=== PATIENT | male | born 1950 | race Caucasian/White ===

== ENCOUNTER 2023-03-26 06:15 | Day surgery (SDC) | payer MEDICARE, BC, SELFPAY ==
[2023-03-26] MEDS: BUPIVACAINE 0.5% 30 ML INJECTION (06:40)
[2023-03-26 06:45] VITALS: BP 141/91; PULSE 43; RESP 16; TEMP 36.8; O2SAT 95
[2023-03-26 06:46] VITALS: BMI 36.6
--- NOTE | 2023-03-26 07:15 | SUR.PREOP ---
SAME DAY SURGERY LOCAL INJECTION SITE VERIFICATION WAS PERFORMED BY SURGEON/PA AND PATIENT PRIOR TO LOCAL ANESTHETIC BEING INJECTED TO OPERATIVE SITE.
[2023-03-26 07:26] VITALS: BP 172/89; PULSE 46; RESP 16; O2SAT 95
[2023-03-26 07:31] VITALS: BP 166/84; PULSE 46; RESP 16; O2SAT 95
[2023-03-26 07:36] VITALS: BP 163/84; PULSE 45; RESP 16; O2SAT 95
[2023-03-26 07:42] VITALS: BP 161/83; PULSE 45; RESP 16; O2SAT 95
--- NOTE | 2023-03-26 07:43 | PM.ORPRC ---
Procedure Note Date of procedure: 03/26/23 Procedure: PREOPERATIVE DIAGNOSIS: 1. Left carpal tunnel syndrome POSTOPERATIVE DIAGNOSIS: 1. Left carpal tunnel syndrome PROCEDURE: 1. Left open carpal tunnel release SURGEON: Ortega Perez MD. GRAVITY MANAGER: ARJUN Curry ANESTHESIA: Local anesthetic (50:50 mixture of 1% lidocaine with epi and 0.5% marcaine plain) - 10ml total IMPLANTS: None EBL: 2 mL TOURNIQUET: None COMPLICATIONS: None evident INDICATIONS: The patient is a pleasant 72-year-old male who has experienced left hand numbess/tingling affecting the radial 3.5 digits for multiple months. It has progressively gotten worse. Nonoperative management has been tried and failed, and therefore surgery was recommended. DESCRIPTION OF PROCEDURE: Following a thorough discussion of risks, benefits, and alternatives consent was obtained and the operative extremity was marked. The patient was brought to the operating room and placed supine on the operating table. Local anesthesia induction was undertaken in preop holding. No antibiotics were administered as this was planned to be a local case only. Proper time-out was performed identifying proper patient, site, and procedure. The operative extremity was prepped and draped in the appropriate sterile fashion using ChloraPrep. An incision was made in line with the radial border of the ring finger beginning 1 cm distal to the distal wrist crease and progressing for another 2.5cm distal. Caution was taken to stay proximal to Wallace's cardinal line. Sharp incision through the skin, subcutaneous tissue, and palmar fascia was performed. The thenar musculature was bluntly elevated off the transverse carpal ligament. The ligament was directly visualized, and divided sharply with a 15 blade. This was released from its most proximal to the most distal extent. Metzenbaum scissor was also utilized to release the fascia extension proximally. We confirmed complete release of the transverse carpal ligament. Closure was performed with 4-O nylon in interrupted fashion. Soft dressings were applied, and the patient was transferred to the recovery room in stable condition. PLAN: 1. Encourage elevation of the operative extremity. 2. Range of motion of the fingers and hand/wrist as tolerated. 3. Ibuprofen/acetaminophen and/or Percocet as needed for pain control. 4. Follow up with PA visit or nurse visit in 12-16 days for wound check and suture removal.
[2023-03-26 08:00] VITALS: BP 151/87; PULSE 46; RESP 16; TEMP 36.5; O2SAT 98
== END 2023-03-26 08:12 | disposition home or self-care (01) ==
PROVIDERS: PCP Family Medicine; Visit Provider Orthopaedic Surgery Sports Medicine
PROC: (CPT 64721; principal; 2023-03-26 07:30)
DX: G56.02 Carpal tunnel syndrome, left upper limb (principal)
CPT/HCPCS: 64721; J0665

== ENCOUNTER 2024-12-16 07:00 | Day surgery (SDC) | payer MEDICARE, BC, SELFPAY ==
[2024-12-16] VITALS (22 sets, daily range): BP systolic 130–172; BP diastolic 77–97; PULSE 48–70; RESP 12–18; TEMP 35.8–37; O2SAT 90–97; BMI 39.3
[2024-12-16] MEDS: ACETAMINOPHEN 500 MG TABLET 1000 MG PO ×3 (07:15→20:22)
[2024-12-16] MEDS: CELECOXIB 200 MG CAPSULE PO (07:15)
[2024-12-16] MEDS: OXYCODONE (CR) 10 MG TAB.ER.12H PO (07:15)
[2024-12-16] MEDS: SODIUM CHLORIDE 0.9 % (FLUSH) 10 ML SYRINGE IVF (07:45)
[2024-12-16] MEDS: LACTATED RINGERS 1000 ML 1,000 ML 100 ML IV ×2 (07:45→10:48)
[2024-12-16] MEDS: fentaNYL 100 MCG/2 ML inj IVP (08:11)
[2024-12-16] MEDS: MIDAZOLAM HCL 1 MG/ML inj IVP (08:11)
--- NOTE | 2024-12-16 08:12 | SUR.PREOP ---
TIME?OUT:?0810 PT/RN/MDA?VERIFICATION?OF?SURGICAL?SITE,?PROCEDURE,?AND?CONSENT OBTAINED?PRIOR?TO?INVASIVE?PROCEDURE.
[2024-12-16] MEDS: CEFAZOLIN 1 GM inj IVP (08:56)
[2024-12-16] MEDS: TRANEXAMIC ACID 100 MG/ML INJ 1000 MG IV (08:56)
--- NOTE | 2024-12-16 09:29 | SUR.OPER ---
per supplier quality engineer contacts needed to come out for surgery. Patient requested glasses to be brought to or with him so he has them when they wake up. glasses given to pacu nurse to put on patient when he wakes up.
--- NOTE | 2024-12-16 10:18 | CRLHL7_ITS ---
For Patients: As a result of the Cures Act, medical imaging exams and procedure reports are released immediately into your electronic medical record. You may view this report before your referring provider. If you have questions, please contact your health care provider. INDICATION: Left knee arthroplasty. COMPARISON: 09/17/2024 TECHNIQUE: Views: 2 FINDINGS: Interval total left knee arthroplasty. Postop periarticular soft tissue gas. IMPRESSION: Interval left knee arthroplasty. Dictated by Darien Humphrey MD @ 12/17/2024 11:12:20 AM (Electronically Signed)
--- NOTE | 2024-12-16 10:23 | P.ORPRC_ITS ---
Procedure Note Date of procedure: 12/16/24 Procedure: PREOPERATIVE DIAGNOSIS: Left knee osteoarthritis POSTOPERATIVE DIAGNOSIS: Left knee osteoarthritis NAME OF OPERATION: Left total knee arthroplasty SURGEON: Kiko Moyer MD DIRECTOR PROPERTY: ANMOL Curry Elizabeth Oss, MS ANESTHESIA: Spinal ESTIMATED BLOOD LOSS: 0 mL COMPLICATIONS: None SPECIMENS: None DRAINS: None PREOPERATIVE ANTIBIOTICS: Ancef 3 grams, antibiotic impregnated cement IMPLANTS: 1. J&J Attune # 8 posterior stabilized femur 2. # 7 revision CRS fixed-bearing tibia, 14 mm x 50 mm cemented stem 3. # 8 posterior stabilized, 5 mm fixed-bearing polyethylene 4. 41 patella INDICATIONS: The patient is a 74-year-old with a longstanding history of severe, unrelenting left knee pain secondary to end-stage (grade IV) left knee osteoarthritis. Despite appropriate nonoperative management, including activity modification, anti-inflammatories, [id number] pain medication, bracing, physical therapy, and injections they continue to have pain and disability. Operative intervention was offered. The risks, benefits and expected outcomes were discussed in detail. These included but were not limited to: Infection, bleeding, injury to blood vessel or nerve, venous thromboembolism. All questions were answered to their satisfaction. Use of an journeyman operator assistant was necessary throughout the case for patient positioning and safety, soft tissue retraction, and closure. A modifier 22 should be added to this case. With the weight of 128 kg and a BMI of 39 a stemmed tibial component was used to reduce the risk of aseptic loosening. This added time and cost to complete the case. PROCEDURE: Spinal anesthesia was administered. The patient was placed supine on the operating table. The journeyman operator assistant made sure the patient was positioned appropriately. The lower extremity was prepped and draped in the usual sterile fashion. The limb was exsanguinated with the Korey bandage. The pneumatic tourniquet was inflated to 300 mmHg. A standard anterior incision was made with the knee in flexion. Subcutaneous dissection was sharply taken through fascial layer #1. Full-thickness medial and lateral flaps were elevated. The journeyman operator assistant retracted the soft tissues and protected them throughout the case. A standard subvastus approach was made. The patella was subluxed. The infrapatellar fat pad was preserved. The menisci and cruciate ligaments were sharply d?brided. Marginal osteophytes were d?brided with the rongeur. The drill was used to penetrate the femoral canal. The canal was aspirated and irrigated with pulse lavage. The intramedullary femoral guide was placed for a 5-degree valgus cut, removing 10 mm off the distal femur. The saw was used to make the cut. Whitesides line and the trans epicondylar axis were marked. The femoral sizing guide was pinned onto the distal femur. Three degrees of external rotation nicely parallels the transepicondylar axis. Pins were placed for posterior referencing. The four-in-one cutting guide was pinned onto the distal femur. The anterior, posterior, and chamfer cuts were made. The journeyman operator assistant protected the collateral ligaments. The box cutting guide was pinned. The box cuts were made. The boxed trial was placed and was an excellent fit. Drill holes for the lugs were made. Attention was then turned to the proximal tibia. The extramedullary tibial guide was placed for a neutral varus/valgus cut with 5 degrees of posterior slope, removing 2 mm based off the medial tibial surface. The journeyman operator assistant protected the collateral ligaments and the neurovascular bundle. The saw was used to make the cut. Trial components were placed. The knee was nicely balanced in both flexion and extension. The trial components were removed. The tray was placed in appropriate rotation, parallel to our tibial cutting pins. It was pinned by the journeyman operator assistant and the drill x2 was used. The stemmed tibial trial was placed. The punch was used. The tray was removed. The punch was used again. Drill holes were made in the sclerotic medial tibial plateau. A bone plug was placed in the femoral canal. Attention was then turned to the patella. [place] patellar thickness was 22 mm. The lobster claw resection guide was used with the 7.5 mm gilbert. The saw was used to make the cut. Drill holes were made by the journeyman operator assistant. The trial was placed. Thickness is now 26 mm. Therefore, we took another mm of bone from the patella with a freehand cut, reach drilled the lugs and placed the trial. Now the thickness is 25 mm. Cancellous surfaces were irrigated with pulse lavage and thoroughly dried by the journeyman operator assistant. We cemented the tibial component, then the femoral component. We impacted the 5 mm polyethylene onto the tibial tray. The knee was brought into full extension. We then cemented the patellar component. Excessive cement was removed. The cement was allowed to harden. The knee was taken through a range of motion and was found to be nicely balanced in both flexion and extension. The patella tracks centrally. The journeyman operator assistant did a three minute dilute Betadine solution soak. The journeyman operator assistant irrigated the wound with 3 liters of normal saline via pulse lavage. The journeyman operator assistant reapproximated the extensor mechanism with #1 Vicryl in an interrupted [id number] fashion. The journeyman operator assistant then ran the extensor mechanism with a #1 PDO Stratafix. The journeyman operator assistant closed the subcutaneous tissues with a 3-0 Stratafix and the skin with a running 3-0 Stratafix in a subcuticular fashion. Glue was used to seal the skin. The journeyman operator assistant placed a dry dressing. Sponge and needle counts were correct x2. The patient tolerated the procedure well. There were no apparent complications. They were carefully transferred to the hospital bed and taken to the postanesthesia care unit in satisfactory condition. PLAN: The patient will be mobilized with physical therapy. Aspirin will be used for DVT prophylaxis. They will be discharged to home once medically appropriate.
--- NOTE | 2024-12-16 11:23 | P.ANES_ITS ---
Anesthesia Charges Start Date/Time Anesthesia Start Date: 12/16/24 Anesthesia Start Time: 08:30 Stop Date/Time Anesthesia Stop Date: 12/16/24 Anesthesia Stop Time: 11:01 Summary Extremes of Age - Over 70 or under 1: LEAD PRESSMAN Coding CPT Codes CPT Codes: ANESTH KNEE ARTHROPLASTY - 93019 ([id number]) P3 - PATIENT W/SEVERE SYS DISEASE, QZ - LEAD PRESSMAN SVC W/O ENTRY LEVEL ASSISTANT MANAGER BY Additional Codes: Summary - Extremes of Age - Over 70 or under 1: LEAD PRESSMAN ([id number])
--- NOTE | 2024-12-16 11:23 | W.ANESCHARGE ---
Anesthesia Charges Start Date/Time Anesthesia Start Date: 12/16/24 Anesthesia Start Time: 08:30 Stop Date/Time Anesthesia Stop Date: 12/16/24 Anesthesia Stop Time: 11:01 Summary Extremes of Age - Over 70 or under 1: OPTICAL ELEMENT COATER Coding CPT Codes CPT Codes: ANESTH KNEE ARTHROPLASTY - 21304 ([id number]) P3 - PATIENT W/SEVERE SYS DISEASE, QZ - OPTICAL ELEMENT COATER SVC W/O HOTEL ASSOCIATE BY Additional Codes: Summary - Extremes of Age - Over 70 or under 1: OPTICAL ELEMENT COATER ([id number])
--- NOTE | 2024-12-16 11:26 | P.NB_ITS ---
Nerve Block Nerve Block Time Seen by Provider: 08:15 Date Seen: 01/08/25 Type of block requested by surgeon for post-operative analgesia: geniculars Side: left Time out performed: Yes Verification of patient name: Yes Verification of date of : Yes Site marking: site marked Name of person performing procedure: Jame Continuous monitoring Was continuous monitoring of O2 sat, B/P, monitor car operator, recorded every 15 minutes?: Yes Procedure Checklist: sterile prep, needles and gloves Ultrasound guided. Images saved: Yes Medications given in 5ml increments after negative aspiration: Marcaine %: 0.25 mL: 9 Needle gauge: 25 Patient tolerated procedure well: Yes Block Charges Block Charge (with Pro Fee): Genicular Nerve Block
--- NOTE | 2024-12-16 11:26 | W.PM.NB ---
Nerve Block Nerve Block Time Seen by Provider: 08:15 Date Seen: 12/16/24 Type of block requested by surgeon for post-operative analgesia: adductor canal Side: left Time out performed: Yes Verification of patient name: Yes Verification of date of : Yes Site marking: site marked Name of person performing procedure: Jame Continuous monitoring Was continuous monitoring of O2 sat, B/P, ekg monitor tech, recorded every 15 minutes?: Yes Procedure Checklist: sterile prep, needles and gloves Ultrasound guided. Images saved: Yes Medications given in 5ml increments after negative aspiration: Marcaine %: 0.25 mL: 15 Needle gauge: 20 Precedex (mcg): 25 Patient tolerated procedure well: Yes Block Charges Block Charge (with Pro Fee): Femoral Nerve Use of Ultrasound Machine for Block: Yes- US Guidance/pain block
--- NOTE | 2024-12-16 11:36 | SUR.PHASEI ---
patient met discharge criteria per anesthesia
[2024-12-16] MEDS: OXYCODONE 5 MG TABLET PO ×4 (15:12→22:29)
--- NOTE | 2024-12-16 15:42 | P.IMCN_ITS ---
Date of Consult Patient: Luisito Patient Consult date: 12/16/24 Requesting Physician: Orthopedics Primary Care Provider: Tima Sinha MD Consult Narrative Reason for consult: Medical management of comorbidities Narrative: Saravanan Tan is a 74 year old male who presented to the hospital today for an elective L TKA. There were no surgical or anesthetic complications noted during procedure. Patient's H&P reviewed, PCP is Dr. Sinha at the [facility]. Past medical history significant for: lymphoma (on Rituximab every other month), chronic pain (recently weaned off of Suboxone by pain clinic), anxiety, pre-DM2, essential HTN. 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 Review of Systems Status of ROS: Reports: 10 or more systems reviewed and unremarkable except as noted in History and below [facility] Medical History (Updated 12/16/24 @ 17:18 by Jasmine Orlando MD) Chronic pain ?G89.29 - Other chronic pain (ICD-10) Hyperlipidemia ?E78.5 - Hyperlipidemia, unspecified (ICD-10) Anxiety ?F41.9 - Anxiety disorder, unspecified (ICD-10) Prostate cancer ?C61 - Malignant neoplasm of prostate (ICD-10) Depression ?F32.A - Depression, unspecified (ICD-10) Arthritis ?M19.90 - Unspecified osteoarthritis, unspecified site (ICD-10) GERD (gastroesophageal reflux disease) ?K21.9 - Gastro-esophageal reflux disease without esophagitis (ICD-10) Cardiac arrhythmia ?I49.9 - Cardiac arrhythmia, unspecified (ICD-10) Elevated cholesterol ?E78.00 - Pure hypercholesterolemia, unspecified (ICD-10) Hypertension ?I10 - Essential (primary) hypertension (ICD-10) Sleep apnea ?G47.30 - Sleep apnea, unspecified (ICD-10) Prolapsed internal hemorrhoids (03/02/11) ?K64.8 - Other hemorrhoids (ICD-10) 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.3 - Anal fistula (ICD-10) Internal hemorrhoids (03/02/11) ?K64.8 - Other hemorrhoids (ICD-10) Surgical History (Updated 12/16/24 @ 17:19 by Jasmine Orlando MD) History of arthroplasty of left knee (12/16/24) ?Z96.652 - Presence of left artificial knee joint (ICD-10) History of carpal tunnel surgery of left wrist (03/26/23) ?Z98.890 - Other specified postprocedural states (ICD-10) H/O prostatectomy ?Z90.79 - Acquired absence of other genital organ(s) (ICD-10) Hx of tonsillectomy ?Z90.89 - Acquired absence of other organs (ICD-10) S/P arthroscopy of right shoulder (10/13/09) ?Z98.890 - Other specified postprocedural states (ICD-10) S/P arthroscopy of right shoulder (09/18/08) ?Z98.890 - Other specified postprocedural states (ICD-10) S/P right knee arthroscopy (01/13/09) ?Z98.890 - Other specified postprocedural states (ICD-10) S/P left knee arthroscopy (12/25/11) ?Z98.890 - Other specified postprocedural states (ICD-10) 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) Father High blood pressure Mother High blood pressure Social History (Reviewed 04/10/23 @ 13:00 by Adri Pierson ~ [facility]) Narrative: former smoker What is your current living situation?: I presently have a place to live Problems where you live: no known problems In the past 12 months, utilities in danger of being shut off: no In past 12 months, lack of transportation kept you from medical appts, meetings, work, or getting things needed for daily living: no In the past 12 mos, have been you worried that your food would run out before you had money to buy more?: never true In the past 12 mos, the food you bought just didn't last and you didn't have money to buy more?: never true Highest level of school completed/degree received: some college, no degree Smoking Status: Never smoker Do you use any of these nicotine containing products: None Second hand tobacco smoke exposure: No How often do you have a drink containing alcohol: never How often do you have six or more drinks on one occasion: Never AUDIT-C Alcohol total score: 0 Non-prescribed substance use: denies use Caffeine: Yes How often does anyone, including family, friends and others, physically hurt you : never How often does anyone, including family, friends and others, insult or talk down to you: never How often does anyone, including family, friends and others, threaten you with harm: never How often does anyone, including family, friends and others, scream or curse at you: never service: Yes Meds Home Medications and Allergies Home Medications ?Medication ?Instructions ?Recorded ?Confirmed ?Type omeprazole 20 mg capsule,delayed 20 mg PO DAILY 03/14/23 12/16/24 History release atorvastatin 40 mg tablet 40 mg PO HS 11/25/24 12/16/24 History acyclovir 400 mg tablet 400 mg PO BID 12/02/24 12/16/24 History amoxicillin 500 mg capsule 2,000 mg PO ONCE PRN 12/02/24 12/16/24 History cholecalciferol (vitamin D3) 25 25 mcg PO DAILY 12/02/24 12/16/24 History mcg (1,000 unit) capsule duloxetine 60 mg capsule,delayed 60 mg PO DAILY 12/02/24 12/16/24 History release ibuprofen 600 mg tablet 600 mg PO QID PRN 12/02/24 12/16/24 History buprenorphine 8 mg-naloxone 2 mg 1 film sublingual DAILY 12/16/24 12/16/24 His tory sublingual film celecoxib 100 mg capsule 100 mg PO BID 12/16/24 12/16/24 History hydrocodone 7.5 mg-acetaminophen 1 tab PO QID PRN 12/16/24 12/16/24 History 325 mg tablet triamcinolone acetonide 0.1 % 1 applic topical TID PRN 12/16/24 12/16/24 History topical cream Allergies Allergy/AdvReac Type Severity Reaction Status Date / Time mirtazapine AdvReac Verified 12/16/24 07:08 Exam Narrative: Exam Narrative: GEN: Alert and oriented, sitting comfortably in bedside chair HEENT: EOMIs bilaterally, no scleral icterus CV: RRR, No concerning murmurs R: LCTA bilaterally without concerning wheezing Skin: No concerning skin lesions or rashes on exposed skin Neuro: Nonfocal Psych: Appropriate Const: Vital Signs, click to edit/add: Vital Signs - 24 hr 12/16/24 07:30 12/16/24 08:12 12/16/24 08:15 Temperature 98.2 F Pulse Rate 57 L 52 L 54 L Respiratory Rate 16 16 16 Blood Pressure 141/82 H 141/85 H 142/77 H Pulse Oximetry 97 97 95 Oxygen Delivery Me thod Room Air Nasal Cannula Nasal Cannula Oxygen Flow Rate 2 2 12/16/24 10:05 12/16/24 10:57 12/16/24 11:00 Temperature 97.6 F 97.6 F 97.6 F Pulse Rate 51 L 52 L 51 L Respiratory Rate 14 12 15 Blood Pressure 142/79 H 136/78 130/89 Pulse Oximetry 92 93 90 Oxygen Delivery Me thod Room Air Room Air Room Air Oxygen Flow Rate 12/16/24 11:05 12/16/24 11:10 12/16/24 11:15 Temperature 97.6 F 97.6 F 97.6 F Pulse Rate 51 L 51 L 50 L Respiratory Rate 14 13 14 Blood Pressure 142/79 H 142/84 H 145/79 H Pulse Oximetry 91 94 95 Oxygen Delivery Me thod Room Air Room Air Room Air Oxygen Flow Rate 12/16/24 11:20 12/16/24 11:25 12/16/24 11:38 Temperature 97.6 F 97 F L 96.6 F L Pulse Rate 49 L 48 L 48 L Respiratory Rate 14 12 12 Blood Pressure 150/89 H 151/84 H 143/96 H Pulse Oximetry 93 93 96 Oxygen Delivery Me thod Room Air Room Air Room Air Oxygen Flow Rate 12/16/24 11:38 12/16/24 11:53 12/16/24 12:08 Temperature 96.5 F L 96.7 F L 97.0 F L Pulse Rate 49 L 52 L 50 L Respiratory Rate 12 12 14 Blood Pressure 143/80 H 159/93 H 170/97 H Pulse Oximetry 97 97 96 Oxygen Delivery Me thod Room Air Room Air Room Air Oxygen Flow Rate 12/16/24 12:23 12/16/24 12:53 12/16/24 13:08 Temperature 96.9 F L 96.9 F L 96.8 F L Pulse Rate 50 L 52 L 52 L Respiratory Rate 14 14 15 Blood Pressure 163/93 H 172/93 H 164/96 H Pulse Oximetry 97 97 97 Oxygen Delivery Me thod Room Air Room Air Room Air Oxygen Flow Rate 12/16/24 14:17 Temperature 97.0 F L Pulse Rate 52 L Respiratory Rate 12 Blood Pressure 164/96 H Pulse Oximetry 97 Oxygen Delivery Me thod Room Air Oxygen Flow Rate Assessment and Plan Assessment and plan (1) Status post left knee replacement: Problem comment: - Dr. Moyer, 12/16/24 Status: Acute (2) Hypertension: Problem comment: - continue home meds Status: Acute (3) Chronic pain: Problem comment: - follows with pain clinic, recently tapered off of his Suboxone Status: Acute Plan - pain management and prophylaxis per orthopedic surgery team - continue home medications for comorbidities - anticipate routine postoperative course
[2024-12-16] MEDS: CEFAZOLIN 3 GM in 0.9 % SODIUM CHLORIDE Mini-bag 100 ML IVPB ×2 (16:04→22:28)
--- NOTE | 2024-12-16 19:29 | PC.NURSE ---
Nursing Care Hours: [id number] Pt this shift calm and cooperative, alert and oriented. Pain treated with PO pain meds. Pt attempting to do exercise in chair but limited by pain. However says pain in zero at rest. VSS, tolerating regular diet. Up in chair. Saline locked IV.
[2024-12-16] MEDS: SENNOSIDES 1 TAB TABLET 2 TAB PO (20:22)
[2024-12-16] MEDS: ASPIRIN 81 MG TABLET EC PO (20:22)
[2024-12-16] MEDS: ACYCLOVIR 200 MG CAPSULE 400 MG PO (20:23)
[2024-12-16] MEDS: ATORVASTATIN CALCIUM 40 MG TABLET PO (20:23)
[2024-12-16] MEDS: HYDROmorphone 0.5 mg/0.5 ml inj IVP (21:53)
[2024-12-16] MEDS: MELATONIN 3 MG TABLET PO (23:52)
[2024-12-17] MEDS: ACETAMINOPHEN 500 MG TABLET 1000 MG PO ×2 (01:22→07:21)
[2024-12-17] MEDS: OXYCODONE 5 MG TABLET PO ×3 (01:27→09:58)
[2024-12-17 02:32] VITALS: BP 132/84; PULSE 65; RESP 16; TEMP 36.6; O2SAT 94
--- NOTE | 2024-12-17 04:50 | PC.NURSE ---
Addendum entered by Kelly Love RN 12/17/24 06:41: Pt walked lipscomb this shift with keno writer/runner utilizing JANICE SIMON WGarrett Original Note: End of shift report [id number]: VS WNL. Afebrile. Rates pain from a 5-6 pain meds offered and given with relief. Pain assessment scale handout given to pt and educated on.?Intermittent ice applied to left knee. Left knee dressing is C/D/I. CMS to LLE intact. IV is SL in R hand. Ambulates JANICE Lee, W. Call light within reach.?
[2024-12-17] MEDS: OMEPRAZOLE 20 MG CAPSULE DR PO (06:23)
[2024-12-17 07:00] VITALS: BP 144/85; PULSE 60; RESP 12; TEMP 36.4; O2SAT 97
[2024-12-17 07:04] LABS: Basophils Percent Auto 0.2 % (0.0-3.0); Hematocrit 41.4 % (37.0-53.0); Hemoglobin* 13.8 gm/dL (13.5-17.5); Immature Granulocytes Pct Auto 0.3 %; Mean Corpuscular HGB Conc 33 gm/dL (32-36); Mean Corpuscular Hemoglobin 28 pg (26-34); Mean Corpuscular Volume 85 fL (80-100); Monocytes Percent Auto 12.8 % (0.0-11.0); Neutrophils Percent Auto 77.7 % (42.0-72.0); Platelet Count* 171 K/uL (140-440); RDW Coefficient of Variation % 14.7 % (11.5-15.5); Red Blood Count 4.86 m/uL (4.30-5.90); White Blood Count* 13.27 K/uL (4.50-11.00)
[2024-12-17 07:26] LABS: Potassium* 3.8 mmol/L (3.6-5.1); Sodium* 136 mmol/L (135-149)
[2024-12-17 07:27] LABS: INR 0.96 (0.91-1.10); Prothrombin Time 13.6 Seconds
[2024-12-17 07:29] LABS: Blood Urea Nitrogen* 18 mg/dL (7-30); Creatinine* 0.9 mg/dL (0.5-1.5); Est. Creatinine Clearance* 70.07; Estimated Glomerular Filt Rate 90 ml/min
[2024-12-17 07:35] LABS: Slide Review Reflex No
--- NOTE | 2024-12-17 07:59 | PC.SOCIAL ---
Discharge planning: Patient states that he is doing well. Patient explains that this is his second knee replacement so knows how it goes. Patient reports that he has his for support and no concerns for when he goes home. Patient states no needs from SW.
--- NOTE | 2024-12-17 08:09 | PM.ORPN ---
Subjective Subjective Time Seen by Provider: 07:30 Date Seen: 12/17/24 Principal diagnosis: Status post left knee replacement Interval history: Duran is comfortable in his recliner this morning. He did not get much sleep last night. He is looking forward to discharging to home. Ortho Exam Narrative Exam Narrative: Alert and oriented x3. Patient is in no acute distress. Converses without labored breathing. Hearing is grossly intact. Ambulates with a walker. Examination of the left lower extremity shows mild soft tissue edema about the left knee. Mild hematoma. Dressing is intact. No warmth or erythema or sign of infection. Calves are soft and nontender. CMS intact left lower extremity. Easily able to plantar flex and dorsiflex the left ankle Const Vital Signs, click to edit/add: Vital Signs - 24 hr 12/16/24 08:12 12/16/24 08:15 12/16/24 10:05 Temperature 97.6 F Pulse Rate 52 L 54 L 51 L Pulse Rate [Right Pulse Oximeter] Respiratory Rate 16 16 14 Blood Pressure 141/85 H 142/77 H 142/79 H Blood Pressure [Left Arm] Blood Pressure [Right Arm] Pulse Oximetry 97 95 92 Oxygen Delivery Method Nasal Cannula Nasal Cannula Room Air Oxygen Flow Rate 2 2 12/16/24 10:57 12/16/24 11:00 12/16/24 11:05 Temperature 97.6 F 97.6 F 97.6 F Pulse Rate 52 L 51 L 51 L Pulse Rate [Right Pulse Oximeter] Respiratory Rate 12 15 14 Blood Pressure 136/78 130/89 142/79 H Blood Pressure [Left Arm] Blood Pressure [Right Arm] Pulse Oximetry 93 90 91 Oxygen Delivery Method Room Air Room Air Room Air Oxygen Flow Rate 12/16/24 11:10 12/16/24 11:15 12/16/24 11:20 Temperature 97.6 F 97.6 F 97.6 F Pulse Rate 51 L 50 L 49 L Pulse Rate [Right Pulse Oximeter] Respiratory Rate 13 14 14 Blood Pressure 142/84 H 145/79 H 150/89 H Blood Pressure [Left Arm] Blood Pressure [Right Arm] Pulse Oximetry 94 95 93 Oxygen Delivery Method Room Air Room Air Room Air Oxygen Flow Rate 12/16/24 11:25 12/16/24 11:38 12/16/24 11:38 Temperature 97 F L 96.6 F L 96.5 F L Pulse Rate 48 L 48 L 49 L Pulse Rate [Right Pulse Oximeter] Respiratory Rate 12 12 12 Blood Pressure 151/84 H 143/96 H 143/80 H Blood Pressure [Left Arm] Blood Pressure [Right Arm] Pulse Oximetry 93 96 97 Oxygen Delivery Method Room Air Room Air Room Air Oxygen Flow Rate 12/16/24 11:53 12/16/24 12:08 12/16/24 12:23 Temperature 96.7 F L 97.0 F L 96.9 F L Pulse Rate 52 L 50 L 50 L Pulse Rate [Right Pulse Oximeter] Respiratory Rate 12 14 14 Blood Pressure 159/93 H 170/97 H 163/93 H Blood Pressure [Left Arm] Blood Pressure [Right Arm] Pulse Oximetry 97 96 97 Oxygen Delivery Method Room Air Room Air Room Air Oxygen Flow Rate 12/16/24 12:53 12/16/24 13:08 12/16/24 14:17 Temperature 96.9 F L 96.8 F L 97.0 F L Pulse Rate 52 L 52 L 52 L Pulse Rate [Right Pulse Oximeter] Respiratory Rate 14 15 12 Blood Pressure 172/93 H 164/96 H 164/96 H Blood Pressure [Left Arm] Blood Pressure [Right Arm] Pulse Oximetry 97 97 97 Oxygen Delivery Method Room Air Room Air Room Air Oxygen Flow Rate 12/16/24 15:00 12/16/24 15:00 12/16/24 18:00 Temperature 98.5 F Pulse Rate 62 Pulse Rate [Right Pulse Oximeter] Respiratory Rate 16 16 16 Blood Pressure 160/90 H Blood Pressure [Left Arm] Blood Pressure [Right Arm] Pulse Oximetry 95 94 Oxygen Delivery Method Room Air Room Air Oxygen Flow Rate 12/16/24 20:15 12/16/24 23:00 12/16/24 23:00 Temperature 98 F 98.6 F Pulse Rate Pulse Rate [Right Pulse Oximeter] 70 68 68 Respiratory Rate 18 16 16 Blood Pressure Blood Pressure [Left Arm] 150/92 H Blood Pressure [Right Arm] 138/88 Pulse Oximetry 96 94 Oxygen Delivery Method Room Air Room Air Oxygen Flow Rate 12/16/24 23:00 12/16/24 23:00 12/17/24 02:32 Temperature 98 F Pulse Rate Pulse Rate [Right Pulse Oximeter] 65 Respiratory Rate 16 16 16 Blood Pressure Blood Pressure [Left Arm] Blood Pressure [Right Arm] 132/84 Pulse Oximetry 94 94 94 Oxygen Delivery Method Room Air Room Air Room Air Oxygen Flow Rate Assessment and Plan Assessment and plan (1) Status post left knee replacement: Problem details: - Dr. Moyer, 12/16/24 Status: Acute Assessment and Plan: Plan for discharge is today to home if they meet discharge criteria. DVT prophylaxis includes aspirin 81 mg twice daily x1 month, Compression stockings as needed for swelling. Frequent ambulation, every hour throughout the day. Remove dressing in 1 week. Observe wound and phone Orthopedics with any questions or concerns Return to clinic in 1 week for a wound check Return to clinic in 6 weeks with surgeon Minimize narcotic use. Wean off and discontinue soon as possible. Activities as tolerated. No strenuous activity. Outpatient physical therapy as scheduled. Ice and elevate the operative extremity. No restriction on ice. Oxycodone will be used for postoperative pain. He will stop is hydrocodone. He would like to stop his Suboxone now that he has weaned off of it. We discussed that that sounds like a great plan. He will speak with Darien Stevenson regarding this. Darien wanted to see him when his pain level is at the point where he is taking 2.5 tablets of oxycodone per day or less. We discussed that his pain will likely increase once the block has worn off. He may experience more intense pain for around 5 days before pain becomes more tolerable. Swelling and bruising is expected to increase over the next week.
[2024-12-17] MEDS: ACYCLOVIR 200 MG CAPSULE 400 MG PO (08:31)
[2024-12-17] MEDS: ASPIRIN 81 MG TABLET EC PO (08:31)
[2024-12-17] MEDS: SENNOSIDES 1 TAB TABLET 2 TAB PO (08:31)
[2024-12-17] MEDS: DULOXETINE 30 MG CAPSULE DR 60 MG PO (08:32)
== END 2024-12-17 10:15 | disposition home or self-care (01) ==
LOC: OR 07:01 → MEDSURG 07:04
PROVIDERS: PCP Family Medicine; Visit Provider Orthopaedic Surgery
PROC: (CPT 27447; principal; 2024-12-16 08:45)
DX: M17.12 Unilateral primary osteoarthritis, left knee (principal); G89.18 Other acute postprocedural pain; Z79.82 Long term (current) use of aspirin; R73.03 Prediabetes; E66.812 Obesity, class 2; I10 Essential (primary) hypertension; G89.29 Other chronic pain; Z68.39 Body mass index [BMI] 39.0-39.9, adult; Z96.652 Presence of left artificial knee joint; I49.9 Cardiac arrhythmia, unspecified
CPT/HCPCS: 27447; 01402; 36415; 64447; 64454; 73560; 76942; 82565; 84132; 84295; 84520; 85025; 85610; 97110; 97116; 97162; 97165; 97530; 97535; 99100; A9270; C1776; J0665; J0690; J1100; J1171; J2250; J2704; J3010; J7120

== ENCOUNTER 2025-02-23 20:10 | Outpatient (CLI) | payer MEDICARE, BC, SELFPAY ==
--- OUTSIDE RECORDS SUMMARY | 2021-10-20 11:20 | XMS_ITS | Continuity of Care Document ---
Author Organization [facility] Address [address] [place] [address] Phone Care Team Providers Care Change Management Name Role Phone Will MD FORREST, Satnam Unavailable Unavailabl e Advance Directives Directive Yes / No Effective Date File Name No Information Encounters Encounter Description Practice Location Reason(s) For Visit Diagnoses Date Provider Providers Copied on Encounter [facility], [address] [place] [address] [place], [place], [id number], [place] tel:[phone] [facility] No Information Will Satnam. [address] [place], [place], [id number], [place]. tel:[phone] Family History Family Member Type Diagnosis Age At Onset No Information Payers Payer name Insurance type Covered republican ID Authoriza tion(s) No Information Social History Type Description Quantity Date Captured Comments Sex Male Smoking Status No Information Chief Complaint And Reason For Visit No Information Reason For Referral Reason For Referral No Information History Of Present Illness Encounter Date Complaint History Of Prese nt Illness No Information Functional Status Date Functional Assessmen t No Information Instructions Date Instruction Additional Infor mation No Information Assessments Type Assessment Date No Information Patient Care Teams Name Effective Dates (start - stop) Status Members No Information
--- OUTSIDE RECORDS SUMMARY | 2024-07-16 05:30 | XMS_ITS | Encounter Summary ---
Author Name [facility] Organization [facility] Address [address] [place] [id number] Care Team Providers Care Guest Relations Associate Name Role Phone TERRY DELGADILLO Primary Care Provider Jasmina cota Insurance Providers: All historical and current Section Date Range: From patient's date of to the date document was created. This section includes the names of all active insurance providers for the patient. Insurance Provider Type of Coverage Plan Name Start of Policy Coverage End of Policy Coverage Group Number Member ID Insurance Provider's Telephone Number Policy Elise's Name Patient's Relationship to Policy Elise [place] PREFERRED PROVIDER ORGANIZAT ION (PPO) FEP BASIC PLUS ONE Sep 03, 2016 [id number] [phone] GIANAJENA JACINTO PATIENT [place] PREFERRED PROVIDER ORGANIZAT ION (PPO) FEP BASIC PLUS ONE Sep 03, 2016 [id number] GIANAJENA CASEY PATIENT MEDICARE (WNR) MEDICARE (M) PART A Aug 03, 2016 PART A [id number] [phone] JENA FARIA PATIENT MEDICARE (WNR) MEDICARE (M) PART B Aug 03, 2016 PART B [id number] [phone] JENA FARIA PATIENT Selected Encounter This section includes the information on record at [place] for the Encounter. Date/Time Encounter Type Encounter Description Reason Provider Source Jul 16, 2024 10:30 AM Outpatient Encounter PRIMARY CARE/MEDICINE ICD-10-CM Z00.00 Encntr for general adult medical exam w/o abnormal findings TERRY DELGADILLO Geovanny IHBárbara Encounter Template Text not used by [place] Assessments - Encounter Diagnoses This section includes the primary and secondary diagnoses documented for the Encounter. Date/Time Primary/Secondary Diagnosis Diagnosis Name Provider Source Jul 29, 2024 11:55 AM PRIMARY Encntr for general adult medical exam w/o abnormal findings TERRY DELGADILLO [facility] Vital Signs: All taken on the encounter date This section contains inpatient and outpatient Vital Signs collected on the date of the Encounter. Date/Time Temperature Pulse Blood Pressure Respiratory Rate SP02 Pain Height Weight Body Mass Index Source Jul 16, 2024 10:34 AM 97.6 68 136/60 20 97 0 73 283.1 37 [facility] Social History: Smoking Status (Most current) and Tobacco Use (All prior to encounter date) This section includes the most current, and the historical, smoking and tobacco- related health factors from the [place] facility where the Encounter took place. Current Smoking Status This section includes the most current smoking, or tobacco-related health factor, from the [place] facility where the Encounter took place. Date/Time Current Smoking Status Comment Facil ity Jul 16, 2024 10:30 AM VA-TOBACCO NEVER USED [facility] Tobacco Use History This section includes a history of the smoking, or tobacco-related health factors, that were collected on or before the date of the Encounter. The data comes from the [place] facility where the Encounter took place. Date/Time Smoking Status/Tobacco Use Comment F acility May 23, 2023 11:00 AM VA-TOBACCO NEVER USED [facility] Apr 07, 2022 11:00 AM VA-TOBACCO FORMER USER [facility] Apr 07, 2022 11:00 AM VA-TOBACCO QUIT 15 YRS OR MORE [facility] Feb 18, 2021 01:30 PM VA-TOBACCO FORMER USER [facility] Feb 18, 2021 01:30 PM VA-TOBACCO QUIT 15 YRS OR MORE [facility] Encounter Notes: All associated encounter notes This section contains the clinical notes associated to the Encounter. Date/Time Encounter Note(s) Provider Source Jul 16, 2024 10:41 AM PRIMARY CARE NOTE: LOCAL TITLE: [facility] PROGRESS NOTE-[facility] TITLE: PRIMARY CARE NOTE DATE OF NOTE: JUL 16, 2024@10:41 ENTRY DATE: JUL 16, 2024@10:41:11 AUTHOR: TERRY DELGADILLO COSIGNER: URGENCY: STATUS: COMPLETED Today's Nurse check-in note reviewed. Co-managed care with Dr. Tima Sinha PCP and oncology at [facility] HPI: The patient is a 73 year old MALE here for Wellness and preventive medicine visit. The patient reports that he was diagnosed with lymphoma one year ago and he continues to follow up with oncology. He has no concerns today. Review of Systems: Denies chest pain, shortness of breath, recent significant weight changes, rash, bowel or bladder changes, new joint pain or swelling, headaches, lightheadedness, vision changes, new numbness or tingling or weakness. Remainder of 10 point ROS is negative, except as above. Past Medical History Active problems - Computerized Problem List is the source for the followin. Depression 2. Allergic rhinitis 3. Hearing loss 4. History of lymphoma Service: Service Branch Service # Entered Discharge [employer] OCT 11, 1970 OCT 02, 1972 HONORABLE Family/social and surgical history reviewed Physical Exam: Vitals: BP: 136/60 (07/16/2024 10:34) P: 68 (07/16/2024 10:34) R: 20 (07/16/2024 10:34) T: 97.6 F [36.4 C] (07/16/2024 10:34) WT: 283.1 lb [128.41 kg] (07/16/2024 10:34) BMI: 37.4 Pain: 0 (07/16/2024 10:34) O2 Sat: 97% (07/16/2024 10:34) General: Alert, well dressed and groomed, no apparent distress HEENT: ear canals clear, TMs normal, OP clear, neck supple without mass, adenopathy or thyromegaly Lungs: Clear; no wheezes or crackles CV: RRR without murmur, no lower extremity edema GI: Abdomen non distended, soft, non tender, normal bowel sounds, no mass or HSM Skin: Warm and moist, no rash or erythema in exposed areas MS: ambulates without difficulty Psych: Good eye contact, speech normal rate and rhythm, affect full range Assessment/Plan: #Wellness/screening visit completed. Total time personally spent by the provider on encounter was 30 minutes on the date of the encounter. If all is well we can see this comanaged back in 2 years. understands and agrees to the plan. Follow up as discussed. Sooner if questions or concerns. Avg Risk Colorectal Cancer Screen: AVERAGE RISK colorectal cancer screening is due based on information available to this clinical reminder Patient has arranged or is choosing to arrange this care independent of and without assistance from this [facility]. Comment: pt reports that he has a colonoscopy scheduled in 1 wk Medication Reconciliation: Education Evaluations *Was medication education provided for NEW medications or CHANGES to medications? (including medication name, dose, route, reason for use, and potential side effects). No new medications or medication changes during this encounter. ===== MEDICATION RECONCILIATION ===== Active and Recently Outpatient Medications (including Supplies): Start Date Active Non-VA Medications Refills Expiration 1) Non-VA ATENOLOL 25MG TAB SiMG ACTIVE MOUTH EVERY DAY 2) Non-VA CHOLECALCIF 25MCG (D3-1,000UNIT) ACTIVE TAB SiMCG MOUTH EVERY DAY 3) Non-VA HYDROCODONE 5MG/ACETAMINOPHEN ACTIVE 325MG TAB Si TABLETS MOUTH FIVE TIMES A DAY NEEDED 4) Non-VA MORPHINE 15MG S.R. TAB SiMG ACTIVE MOUTH EVERY 12 HOURS 5) Non-VA NON VA MED NOT LISTED ACTIVE MISCELLANEOUS Sig: CPAP AT BEDTIME 6) Non-VA SERTRALINE HCL 100MG TAB Sig: ACTIVE 100MG MOUTH EVERY DAY 7) Non-VA TRAZODONE HCL 100MG TAB Sig: ACTIVE 100MG MOUTH AT BEDTIME /es/ TERRY DELGADILLO, DNP, CODING FILE CLERK, LOADER OPERATOR/GROUND LEADER-[facility] NURSE PRACTITIONER Signed: 07/16/2024 11:00 TERRY DELGADILLO [facility] Jul 16, 2024 10:34 AM PRIMARY CARE NURSI NG NOTE: LOCAL TITLE: [facility] NURSING PROGRESS NOTE STANDARD TITLE: PRIMARY CARE NURSING NOTE DATE OF NOTE: JUL 16, 2024@10:34 ENTRY DATE: JUL 16, 2024@10:34:58 AUTHOR: ADONIS CUNNINGHAM EXP COSIGNER: URGENCY: STATUS: COMPLETED TYPE OF VISIT: Appointment Check In Type of appointment: In-person appointment REASON FOR VISIT: annual Comanaged with [facility] ALLERGIES: Patient has answered NKA VITAL SIGNS: Blood Pressure: 136/60 (07/16/2024 10:34) Pulse: 68 (07/16/2024 10:34) Respiration: 20 (07/16/2024 10:34) Temperature: 97.6 F [36.4 C] (07/16/2024 10:34) Weight: 283.1 lb [128.41 kg] (07/16/2024 10:34) Height: 73 in [185.4 cm] (07/16/2024 10:34) BMI: 37.4 O2 Sat: 97% (07/16/2024 10:34) Pain: 0 (07/16/2024 10:34) PAIN SCREEN: Patient is not having significant pain that they wish to discuss with their provider today. COVID-19 Immunization: Refused Pfizer Monovalent COVID-19 vaccine Immunization: COVID-19 (PFIZER), MRNA, LNP-S, PF, DESIREE-SUCROSE, 30 MCG/0.3 ML (AGES 12+ YEARS) Refusal Reason: PATIENT DECISION Patient refuses all immunization(s) in the COVID-19 group Date Documented: 07/16/24 10:46 Suicide Screen: C-SSRS Screening Delta Suicide Severity Rating Scale (C-SSRS) screener 1. Over the past month, have you wished you were or wished you could go to sleep and not wake up? No 2. Over the past month, have you had any actual thoughts of killing yourself? No 3. Over the past month, have you been thinking about how you might do this? Response not required due to responses to other questions. 4. Over the past month, have you had these thoughts and had some intention of acting on them? Response not required due to responses to other questions. 5. Over the past month, have you started to work out or worked out the details of how to kill yourself? Response not required due to responses to other questions. 6. If yes, at any time in the past month did you intend to carry out this plan? Response not required due to responses to other questions. 7. In your lifetime, have you ever done anything, started to do anything, or prepared to do anything to end your life (for example, collected pills, obtained a gun, gave away valuables, went to the roof but didn't jump)? No 8. If YES, was this within the past 3 months? Response not required due to responses to other questions. Influenza Immunization: Deferral / Refusal The patient declines to receive the recommended dose of seasonal influenza vaccine. Immunization: INFLUENZA, UNSPECIFIED FORMULATION Refusal Reason: PATIENT DECISION Patient refuses all immunization(s) in the FLU group Date Documented: 07/16/24 10:47 Depression Screening: Perform PHQ-2 A PHQ-2 screen was performed. The score was 0 which is a negative screen for depression. Over the past two weeks, how often have you been bothered by the following problems? 1. Little interest or pleasure in doing things Not at all 2. Feeling down, depressed, or hopeless Not at all Alcohol Use Screen (AUDIT-C): Alcohol Screen: SCREEN FOR ALCOHOL (AUDIT-C) An alcohol screening test (AUDIT-C) was negative (score=0). 1. How often did you have a drink containing alcohol in the past year? Consider a drink to be a 12 ounce can or bottle of regular beer, 8 ounces of malt liquor, a 5 ounce glass of table wine, or a 1.5 ounce shot of liquor (like scotch, gin, or vodka). Never 2. How many drinks containing alcohol did you have on a typical day when you were drinking in the past year? Response not required due to responses to other questions. 3. How often did you have six or more drinks on one occasion in the past year? Response not required due to responses to other questions. Nursing Annual Screening: Whole Health Screen is due OR due soon (within 90 days). Fall History Screen During the past 12 months, have you had any falls? Patient does not report any falls in the past 12 months. MEDICATIONS: Patient is on one of the following medication classes: Antihypertensives, Antidepressants, Antipsychotics, Diuretics, or Controlled substance medication used for pain. Script Talk Screen Are you able to read your prescription bottles with your glasses, magnifiers or other aids? Yes or patient not taking any prescriptions. Skin Screen Patient reports any current pressure ulcers, a history of pressure ulcers, or a wound from a medical staff coordinator or Patient is bed-confined or a wheelchair-user or Patient requires assistance to transfer/change position No, Skin Screen is Negative Home Abuse/Violence Screen Is your home free of abuse and violence? Yes Outpatient Nutrition Screen Body Mass Index (BMI)= 37.4 [place]: No data available [place] Hgb A1C: No data available [place] Hgb A1C: No data available Point of Care Hgb A1C: POC HGB A1C____ Is patient's BMI less than 18.5? No Does patient have swallowing, coughing, or chewing problems affecting oral intake? No Has patient experienced unplanned weight loss or gain greater than 10 pounds over the last 2 months? No Is patient's Hgb A1C (Glycosylated Hemoglobin) greater than 9.5? No Is patient receiving Total Parenteral Nutrition (TPN) or Tube Feedings? No Patient Health Education Screen BARRIERS/SPECIAL NEEDS: No barriers identified PREFERRED STYLE OF LEARNING: Watching something Listening Reading Client Assistive Service (LOCO) Screen Does the patient require assistance with outpatient visit? No Tobacco Use Screening: The patient has never used tobacco. Homelessness/Food Insecurity Screen: In the past 2 months, have you been living in stable housing that you own, rent, or stay in as part of a household? Yes - Living in stable housing. Are you worried or concerned that in the next 2 months you may NOT have stable housing that you own, rent, or stay in as part of a household? No - Not worried about housing near future [facility] [place] reports the following: Within the past 12 months, you worried whether your food would run out before you got money to buy more. Never true Within the past 12 months, the food you bought just didn't last and you didn't have money to get more. Never true Food Assistance Programs [facility] Food Assistance [facility] Radu HARDING /felicitas/ ADONIS CUNNINGHAM LPN LICENSED PRACTICAL NURSE Signed: 07/16/2024 10:51 ADONIS CUNNINGHAM OC
--- OUTSIDE RECORDS SUMMARY | 2025-02-17 06:00 | XMS_ITS | Encounter Summary ---
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 Date/Time Encounter Type Encounter Description Reason Provider Source Feb 17, 2025 11:00 AM MTMS BY PHARM ADDL 15 MIN CLINICAL PHARMACY ICD-10-CM E66.9 Obesity, unspecified YANE,GITA N IHE Encounter Template Text not used by [place] Assessments - Encounter Diagnoses This section includes the primary and secondary diagnoses documented for the Encounter. Date/Time Primary/Secondary Diagnosis Diagnosis Name Provider Source Feb 17, 2025 03:03 PM PRIMARY Obesity, unspecified YANE,GITA N [facility] Plan of Treatment: Future Appointments (+ 6 months) and Future Tests (+/- 45 days) The Plan of Treatment section includes future care activities for the patient from all [place] treatmentfacilities. This section includes future appointments and future orders which are active, pending or scheduled. Future Appointments This section includes appointments that were scheduled to occur 6 months from the date of the Encounter, up to a maximum of 20 appointments. The data comes from all [place] treatment facilities. Appointment Date/Time Appointment Type Appointme nt Facility Name Mar 10, 2025 12:00 PM AMBULATORY - NONE [facility] Vital Signs: All taken on the encounter date This section contains inpatient and outpatient Vital Signs collected on the date of the Encounter. Date/Time Temperature Pulse Blood Pressure Respiratory Rate SP02 Pain Height Weight Body Mass Index Source Feb 17, 2025 11:17 AM 272.9 lb 36 [facility] Social History: Smoking Status (Most current) and Tobacco Use (All prior to encounter date) This section includes the most current, and the historical, smoking and tobacco- related health factors from the [place] facility where the Encounter took place. Current Smoking Status This section includes the most current smoking, or tobacco-related health factor, from the [place] facility where the Encounter took place. Date/Time Current Smoking Status Comment Simone velez Jul 16, 2024 10:30 AM VA-TOBACCO NEVER USED [facility] Tobacco Use History This section includes a history of the smoking, or tobacco-related health factors, that were collected on or before the date of the Encounter. The data comes from the [place] facility where the Encounter took place. Date/Time Smoking Status/Tobacco Use Comment F [facility] May 23, 2023 11:00 AM VA-TOBACCO NEVER USED [facility] Apr 07, 2022 11:00 AM VA-TOBACCO FORMER USER [facility] Apr 07, 2022 11:00 AM VA-TOBACCO QUIT 15 YRS OR MORE [facility] Feb 18, 2021 01:30 PM VA-TOBACCO FORMER USER [facility] Feb 18, 2021 01:30 PM VA-TOBACCO QUIT 15 YRS OR MORE [facility] Encounter Notes: All associated encounter notes This section contains the clinical notes associated to the Encounter. Date/Time Encounter Note(s) Provider Source Feb 17, 2025 11:05 AM PHARMACY NOTE: LOCAL TITLE: PHARMACOTHERAPY-CLINICAL PHARMACY NOTE STANDARD TITLE: PHARMACY NOTE DATE OF NOTE: FEB 17, 2025@11:05 ENTRY DATE: FEB 17, 2025@11:05:16 AUTHOR: GITA CHE EXP COSIGNER: URGENCY: STATUS: COMPLETED Visit Type: In-Clinic BACKGROUND: NUZHAT FRAIA is a 74 year old [place] contacted for an initial weight management visit. HPI: - addison has his care comanaged with Dr. Prado at [facility] ([facility]) - was prescribed tirzepatide (Zepbound), but was unable to [facility] it through the [facility] due to not having tried other weight loss options - however, nonVA PCP was able to prescribe tirzepatide through commerical insurance due to BMI and JUAN LUIS dx - since starting med 6 weeks ago, addison has already lost about 10 lbs - [facility] PM *JLV includes the following - JUAN LUIS (2007) - HLD: on atorvastatin - prediabetes - HTN *will alert PCP to update if appropriate Past Medical History: Active problems - Computerized Problem List is the source for the followin. Depression 2. Allergic rhinitis 3. Hearing loss 4. History of lymphoma SUBJECTIVE == - Reports no acute concerns at today's visit. Obesity-Focused History: ------ Baseline Weight: 272.9 lbs [123.79 kg], BMI 36.08 [place] Body Weight: 176.1 lbs [79.9 kg] Patient's Goal Weight: 200-220 lbs When did patient first start gaining weight: - ongoing concern - has noticed further weight gain since both of his knees were replaced Past weight loss attempts (what worked, what didnt): Medications/supplements: - on tirzepatide: lost ~10 lbs in 6 weeks - injecting 5 mg weekly on Sundays - has only completed 1 dose of 5 mg - denies any side effects - since starting does not care about food too much Diet plans: - reducing calories, eating less Previous physical activity/exercise regimens: none Reasons for desired weight loss: - wants to feel better - health (avoid diabetes) Barriers to weight loss: physical limitations due to knee replacement - cannot walk much more than 1-1.5 mile without pain Triggers to eat (hunger, appetite, lack of satiety, cravings, anxiety, boredom, reward, emotional eating, etc): denies --------- Lifestyle/CLI -------- Enrolled in [employer] (If yes, skip diet/physical activity review) - has upcoming appt with dietitian on 03/10/25 -Current Diet *decreased appetite since being on tirzepatide Meal 1: eggs and toast with fruit Meal 2: meat and potato -Physical Activity/Exercise: - walks with his dog Alcohol use: denies Tobacco use: denies Recreational drug use (marijuana/others): Oral Medication Screen: -Seizure Hx: denies -Kidney Stone Hx: denies -Prediabetes: 6.1% (Luisito *JLV - 08/08/2024) -HTN: yes -MH Hx: yes - on sertraline -Cardiac Hx: - Father Hx: NC -Cancer: prostate and lymphoma GLP-1a Screening: (-)Personal history of thyroid cancer (-)Family history of thyroid cancer (-)History of pancreatitis (-) hx/o gallstones (-) elevated TGs (-)Gastroparesis (-)Other GI conditions (-)Active SI or past suicide attempts Eye Exam: has not had one in the last year Obsenogenic Meds: sertraline and atenolol Objective: Date Wt BMI 02/17 272.9 lbs 36.08 ALLERGIES/ADR: Patient has answered NKA Active Outpatient Medications (excluding Supplies): Non-VA Medications Status 1) Non-VA ATENOLOL 25MG TAB 25MG MOUTH EVERY DAY ACTIVE 2) Non-VA CHOLECALCIF 25MCG (D3-1,000UNIT) TAB 25MCG ACTIVE MOUTH EVERY DAY 3) Non-VA HYDROCODONE 5MG/ACETAMINOPHEN 325MG TAB 2 ACTIVE TABLETS MOUTH FIVE TIMES A DAY NEEDED 4) Non-VA MORPHINE SO4 15MG SA TAB 15MG MOUTH EVERY 12 ACTIVE HOURS 5) Non-VA NON VA MED NOT LISTED MISCELLANEOUS CPAP AT ACTIVE BEDTIME 6) Non-VA SERTRALINE HCL 100MG TAB 100MG MOUTH EVERY DAY ACTIVE 7) Non-VA TRAZODONE HCL 100MG TAB 100MG MOUTH AT BEDTIME ACTIVE Vitals: Measurement DT WEIGHT LB(KG)[BMI] 07/16/2024 10:34 283.1(128.41)[37*] 05/23/2023 10:55 262.2(118.93)[35*] 04/07/2022 11:01 271.8(123.29)[36*] Measurement DT BP 07/16/2024 10:34 136/60 05/23/2023 10:55 122/85 04/07/2022 11:01 126/72 Labs: Collection DT Specimen Test Name Result Units Ref Range 02/18/2021 13:56 PLASMA CREATININE 1.0 mg/dL 0.7 - 1.2 Recent A1C's (last four) No data available for: HEMOGLOBIN A1C No LFT's in last two years No data available for: TSH No data available Assessment: #Weight Loss (goal 5% weight loss after 12 weeks of medication therapy) - NUZHAT FARIA is a 74YO MALE motivated for weight loss currently prescribed tirzepatide to assist with weight control. Requesting to receive med through the [facility]. Due to BMI and comorbid conditions (JUAN LUIS, HTN, HLD, and prediabetes), vet would qualify for med based on current CFU. Plan: 1. Medications Order tirzepatide 5 mg under the skin once weekly *PA placed 2. Education - Diet: - Reduce portion sizes by utilizing the MyPlate method - Increase protein intake - Add vegetables to each of your meals - Physical activity/exercise: - Try to have regular exercise adapted to complications and co-morbidities. Optimal is 30-60 minutes of walking a day. Zepbound Education - MOA of tirzepatide - once weekly injection without regard to meals - titration schedule - side effects reviewed (nausea, vomiting, constipation, diarrhea, pancreatitis) -side effects may be worse the first 1-2 days after starting/after a dose increase - Reviewed eating smaller meals to reduce risk of GI side effects - If you miss a dose, take it as soon as you remember it - do not resume if it has been 2 wks since your last dose as it may need to be re-titrated - Reviewed to skip a dose if next dose is within 48 hours - storage and expiration The following general principles of weight management medications were discussed: 1. Medications must be used in combination with healthy lifestyle modifications; 2. Continued engagement in CLI is required 3. If a medication is tolerated and is helping with weight loss, it may be continued long-term. If a medication is stopped, weight regain is possible. 4. Reviewed risks/benefits of weight loss medications in depth, reviewed potential side effects 3. F/U: -RTC: 4 weeks -Labs: No labs are indicated at today's visit Disease Specific Med Rec: Completed Today Time Spent: 30 mins /felicitas/ Gita Che PharmD Brooks CBISRRAEL Clinical Business Analysis Analyst Signed: 02/18/2025 16:11 Receipt Acknowledged By: * AWAITING SIGNATURE * TERRY DELGADILLO [facility]
--- OUTSIDE RECORDS SUMMARY | 2025-02-19 06:22 | XMS_ITS ---
Author Name [facility] [facility] [place] Address [address] [place] [address] Care Team Providers Care Finance Attorney Name Role Phone TERRY DELGADILLO Primary Care [...] BASIC PLUS ONE Sep 03, 2016 113 [id number] [phone] JENA FARIA PATIENT [place] PREFERRED PROVIDER ORGANIZAT ION (PPO) FEP BASIC PLUS ONE Sep 03, 2016 113 [id number] [phone] JENA FARIA PATIENT MEDICARE (WNR) MEDICARE (M) PART A Aug 03, 2016 PART A [id number] [phone] JENA FARIA PATIENT MEDICARE (WNR) MEDICARE (M) PART B Aug 03, 2016 PART B [id number] [id number] [phone] JENA FARIA PATIENT Selected Encounter This section includes the information on record at [place] for the Encounter. Date/Time Encounter Type Encounter Description Reason Provider Source Feb 19, 2025 11:22 AM [facility] DIG ASSMT&MGMT 5-10 CLINICAL PHARMACY ICD-10-CM E66.9 Obesity, unspecified GUILLE TAVAREZ [facility] Encounter Template Text not used by [place] Assessments - Encounter Diagnoses This section includes the primary and secondary diagnoses documented for the Encounter. Date/Time Primary/Secondary Diagnosis Diagnosis Name Provider Source Feb 19, 2025 11:24 AM PRIMARY Obesity, unspecified GUILLE TAVAREZ [facility] Plan of Treatment: Future Appointments (+ 6 months) and Future Tests (+/- 45 days) The Plan of Treatment section includes future care activities for the patient from all [place] treatmentfacilities. This section includes future appointments and future orders which are active, pending or scheduled. Future Appointments This section includes appointments that were scheduled to occur 6 months from the date of the Encounter, up to a maximum of 20 appointments. The data comes from all [place] treatment facilities. Appointment Date/Time Appointment Type Appointme nt Facility Name Mar 10, 2025 12:00 PM AMBULATORY - NONE [facility] Encounter Notes: All associated encounter notes This section contains the clinical notes associated to the Encounter. Date/Time Encounter Note(s) Provider Source Feb 19, 2025 11:22 AM PHARMACY CONSULT: LOCAL TITLE: PHARMACY PRIOR AUTHORIZATION APPROVED CONSULT STANDARD TITLE: PHARMACY CONSULT DATE OF NOTE: FEB 19, 2025@11:22 ENTRY DATE: FEB 19, 2025@11:22:34 AUTHOR: GUILLE TAVAREZ EXP COSIGNER: URGENCY: STATUS: COMPLETED The medical record has been reviewed with regard to this prior authorization drug request. Medication requested: TIRZEPATIDE WL 5MG/0.5ML SOLN INJ PEN Medication indication: OBESITY Medical history relevant to this request: 74 year old with elevated BMI and multiple weight related complications, currently on n/f injection and responding. The request is approved - The patient previously responded to a non-formulary or non-preferred agent and serious risk is associated with a change the preferred formulary alternative(s) Active Outpatient Medications (including Supplies): TIRZEPATIDE WL 5MG/0.5ML SOLN INJ PEN INJECT CONTENTS OF 1 PENDING PEN UNDER THE SKIN ONCE WEEKLY Non-VA ATENOLOL 25MG TAB 25MG MOUTH EVERY DAY ACTIVE Non-VA ATORVASTATIN CALCIUM 20MG TAB 20MG MOUTH EVERY DAY ACTIVE Non-VA CHOLECALCIF 25MCG (D3-1,000UNIT) TAB 25MCG MOUTH ACTIVE EVERY DAY Non-VA HYDROCODONE 5MG/ACETAMINOPHEN 325MG TAB 2 TABLETS ACTIVE MOUTH FIVE TIMES A DAY NEEDED Non-VA MORPHINE SO4 15MG SA TAB 15MG MOUTH EVERY 12 HOURS ACTIVE Non-VA NON VA MED NOT LISTED MISCELLANEOUS CPAP AT ACTIVE BEDTIME Non-VA SERTRALINE HCL 100MG TAB 100MG MOUTH EVERY DAY ACTIVE Non-VA TRAZODONE HCL 100MG TAB 100MG MOUTH AT BEDTIME ACTIVE /es/ GU[facility] TAVAREZ PharmD, [facility] Pharmacist Signed: 02/19/2025 11:24 GUILLE TAVAREZ [facility]
--- OUTSIDE RECORDS SUMMARY | 2025-02-23 19:59 | XMS_ITS | Continuity of Care Document ---
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 It does not include entries that were removed or entered in error. Problem Status Onset Date Problem Type Date of Resolution Comments Source Allergic rhinitis Active Condition [facility] Depression Active Condition [facility] Hearing loss Active Condition [facility] History of lymphoma Active Condition [facility] Diagnosis: ICD-10-CM E66.9 Obesity, unspecified Active Diagnosis [place] [facility] Diagnosis: ICD-10-CM Z00.00 Encntr for general adult medical exam w/o abnormal findings Active Diagnosis [facility] Medications Combined list of outpatient medications from Department of Defense and Veterans Affairs facilities.Medications provided include 1) outpatient medications from the last 15 months, and 2) patient-reported medications. Medication Details Route Status Patient Instructions Prescription Expires Prescription Number Last Dispense Date Ordering Provider Order Date Order Qty Source ATENOLOL 25MG TAB TAKE ONE TABLET BY MOUTH EVERY DAY ORAL ACTIVE Hannah DELGADILLO 2020 [facility] ATORVASTATI N CA 20MG TAB TAKE ONE TABLET BY MOUTH EVERY DAY ORAL ACTIVE Giovanna CHE N 2024 [facility] CHOLECALCIF LAN 25MCG (1,000UNIT) TAB TAKE ONE TABLET BY MOUTH EVERY DAY ORAL ACTIVE Hannah DELGADILLO 2020 [facility] HYDROCODONE 5MG/ACETAMI NOPHEN 325MG TAB TAKE TWO TABLETS BY MOUTH FIVE TIMES A DAY NEEDED ORAL ACTIVE Hannah DELGADILLO 2020 [facility] MORPHINE SO4 15MG TAB,SA TAKE ONE TABLET BY MOUTH EVERY 12 HOURS ORAL ACTIVE Hannah DELGADILLO 2020 [facility] NON VA MED NOT LISTED USE CPAP AT BEDTIME ACTIVE Hannah DELGADILLO 2020 [facility] SERTRALINE HCL 100MG TAB TAKE ONE TABLET BY MOUTH EVERY DAY ORAL ACTIVE LEONAHannah ISAI M 2020 [facility] TIRZEPATIDE (WT LOSS) 5MG/0.5ML INJ,SOLN,PE N INJECT CONTENTS OF 1 PEN UNDER THE SKIN ONCE WEEKLY FOR WEIGHT LOSS SUBCUT ANEOUS ACTIVE 02/19/2026 [id number] Giovanna CHE N 2024 4 [facility] TRAZODONE HCL 100MG TAB TAKE ONE TABLET BY MOUTH AT BEDTIME ORAL ACTIVE Hannah DELGADILLO ISAI M 2020 [facility] Immunizations Combined list of available immunizations from the Department of Defense and Veterans Affairs facilities. Immunization Series Date Given Administered By Site Reaction Lot Number CVX Code Drug Weed Eradicator Status Comments Source COVID-19 (MODERNA), MRNA, LNP-S, PF, 50 MCG/0.5 ML (AGES 12+ YEARS) 2023 312 complet ed HISTORICA L INFORMATI ON - FROM OTHER REGISTRY, [facility] INFLUENZA, ADJUVANTED, TRIVALENT, PF 2023 168 complet ed HISTORICA L INFORMATI ON - FROM OTHER [facility], [facility] INFLUENZA, ADJUVANTED, QUADRIVALENT, PF 2022 205 complet ed HISTORICA L INFORMATI ON - FROM OTHER REGISTRY, [facility] INFLUENZA, UNSPECIFIED FORMULATION 2022 88 complet ed HISTORICA L INFORMATI ON - FROM OTHER PROVIDER, [facility] PNEUMOCOCCAL CONJUGATE PCV20, POLYSACCHARID E [id number] CONJUGATE, ADJUVANT, PF 2022 216 complet ed HISTORICA L INFORMATI ON - FROM OTHER REGISTRY, [facility] COVID-19 (PFIZER), MRNA, LNP-S, BIVALENT, PF, 30 MCG/0.3 ML DOSE 2021 300 complet ed HISTORICA L INFORMATI ON - FROM OTHER REGISTRY, [facility] INFLUENZA, HIGH-DOSE, QUADRIVALENT 2021 197 complet ed HISTORICA L INFORMATI ON - FROM OTHER REGISTRY, [facility] ZOSTER RECOMBINANT 2020 187 complet ed HISTORICA L INFORMATI ON - FROM OTHER REGISTRY, [facility] INFLUENZA, HIGH-DOSE, QUADRIVALENT 2020 197 complet ed HISTORICA L INFORMATI ON - FROM OTHER REGISTRY, [facility] ZOSTER RECOMBINANT 2020 187 complet ed HISTORICA L INFORMATI ON - FROM OTHER REGISTRY, [facility] TDAP 2019 115 complet ed HISTORICA L INFORMATI ON - FROM OTHER REGISTRY, [facility] INFLUENZA, TRIVALENT, ADJUVANTED 2018 168 complet ed HISTORICA L INFORMATI ON - FROM OTHER REGISTRY, [facility] INFLUENZA, UNSPECIFIED FORMULATION 2018 88 complet ed [facility] PNEUMOCOCCAL POLYSACCHARID E PPV23 2017 33 complet ed HISTORICA L INFORMATI ON - FROM OTHER REGISTRY, [facility] INFLUENZA, HIGH DOSE SEASONAL 2016 135 complet ed HISTORICA L INFORMATI ON - FROM OTHER REGISTRY, [facility] PNEUMOCOCCAL CONJUGATE PCV [address] [facility] INFLUENZA, INJECTABLE, QUADRIVALENT, PRESERVATIVE FREE 2014 150 complet ed HISTORICA L INFORMATI ON - FROM OTHER REGISTRY, [facility] TDAP 2014 115 complet ed HISTORICA L INFORMATI ON - FROM OTHER REGISTRY, [facility] INFLUENZA, SEASONAL, INJECTABLE 2012 141 complet ed HISTORICA L INFORMATI ON - FROM OTHER REGISTRY, [facility] Vital Signs Combined list of inpatient and outpatient Vital Signs from Department of Defense and Veterans Affairs, ranging from 12 months to all on record, depending upon the facility. Vital Sign Value Date Comments Source WEIGHT 272.9 02/17/2025 11:17:48 [facility] BMI 36 kg/m2 02/17/2025 11:17:48 [facility] SYSTOLIC BLOOD PRESSURE 136 07/16/2024 10:34:05 [facility] DIASTOLIC BLOOD PRESSURE 60 07/16/2024 10:34:05 [facility] PULSE OXIMETRY 97 07/16/2024 10:34:05 [facility] WEIGHT 283.1 07/16/2024 10:34:05 [facility] BMI 37 kg/m2 07/16/2024 10:34:05 [facility] PAIN 0 07/16/2024 10:34:05 [facility] HEIGHT 73 07/16/2024 10:34:05 [facility] TEMPERATURE 97.6 07/16/2024 10:34:05 [facility] PULSE 68 07/16/2024 10:34:05 [facility] RESPIRATION 20 07/16/2024 10:34:05 [facility] Encounters Combined list of: 1) Encounters from Department of [facility] Affairs facilities going backup to the last 18 months, not all [place] inpatient encounters are included; 2) Encounters from the Department of [facility] facilities going backup to 280 months. Location Location Details Encounter Type Encounter Number Reason For Visit Attending Provider ADM Date DC Date Status Disposition Source [place] [facility] Outpatient Encounter [id number] [facility] Out[facility] Encounter [id number] Diagnos is: ICD-10- CM Z00.00 Encntr for general adult medical exam w/o abnorma l finding s MUGAMBI,JA NE M 07/16 [facility] [place] [facility] Outpatient Encounter [id number] 08/08 [facility] [place] [facility] Outpatient [facility]counter [id number] 11/04 [facility] [place] [facility] Outpatient [facility]counter [id number] 01/02 [facility] MTMS BY PHARM ADDL 15 MIN [id number] Diagnos is: ICD-10- CM E66.9 Obesity , unspeci MUNIRA Collazo N 02/17 [facility] [place] [facility] NQHP OL DIG ASSMT&MGMT 5-10 [id number] Diagnos is: ICD-10- CM E66.9 Obesity , unspeci TAD [place] T 02/19 [facility] Social History Combined list of available smoking, tobacco, and other social history from Department of Defense and Veterans Affairs facilities. Social History Type Response Date Comment Sourc e Tobacco smoking status NHIS VA-TOBACCO NEVER USED 07/16/2024 [facility] History of tobacco use VA-TOBACCO NEVER USED 05/23/2023 [facility] History of tobacco use VA-TOBACCO FORMER USER 04/07/2022 [facility] History of tobacco use VA-TOBACCO FORMER USER 02/18/2021 [facility] Plan of Care List of future care activities from Department of Veterans Affairs facilities. Additional future care activities may be listed in the Assessment and Plan section. Date/Time Care Activity Care Activity Detail Facili ty 03/10/2025 AMBULATORY - NONE [facility] - NONE [facility]
--- OUTSIDE RECORDS SUMMARY | 2025-02-24 01:25 | XMS_ITS | Patient Health Record ---
Author Organization [place] Address [address] [place] [address] Care Team Providers Care Maintenance Trainer Name Role Phone UMESH ROBERTSON Primary Care Provider [phone] Allergies No Known Allergies Reason For Referral No Information Medications Medication SIG (Take, Route, Frequency, Duration) Notes Start Date End Date Status oxyCODONE HCl 10 MG 1 tablet as needed O rally every 6 hrs for 30 days Active Atorvastatin Calcium 20 MG 1 tablet Oral ly Once a day Active Sertraline HCl 100 MG 1 tablet Orally On ce a day Active Omeprazole 20 MG 1 capsule 30 minutes before morning meal Orally Once a day Active oxyCODONE-Acetaminophen 10-325 MG 1 tablet as needed Orally every 6 hrs for 30 days 11/27/2022 Active Social History Tobacco Use: Social History Observation Description Date Details (start date - stop date) Never Smoker NA - NA Tobacco Use/Smoking Question Answer Notes Are you a nonsmoker Alcohol Screen (Audit-C) Question Answer Notes Did you have a drink containing alcohol in the p ast year? No Points 0 Interpretation Negative Plan Of Treatment No Information Insurance Providers Payer Name Payer Address Payer Phone Subscriber Number Group Number Insured Name Patient Relationship to Insured Coverage Start Date Coverage End Date [employer] [place] [address] [address] [place] [address] [id number] NUZHAT FARIA Self - patient is the insured 3 Blue [employer] and Blue Shield [facility] [address] [place] [address] [phone] [id number] NUZHAT FARIA Self - patient is the insured 3 Medical (General) History Medical History History ICD Code Chronic low back pain hypercholesterolemia depression acid reflux Surgical History Surgery Date(Month/Year) right knee replacement 2019 prostatectomy rotator cuff tear repair right carpal tunnel release trigger finger release Hospitalization History Reason Date(Month/Year) See Surgical History
--- OUTSIDE RECORDS SUMMARY | 2025-02-24 01:26 | XMS_ITS | Clinical Summary ---
Author Organization [facility] Address [address] [place] [address] Care Team Providers Care Manager Center Name Role Phone Tima Sinha MD [facility] Unavailable Mayo Beaulieu LGSW Unavailable [phone] SENIOR HARDWARE DESIGN ENGINEER Unavailable Shelia Villa MD Unavailable [phone] Allergies Active Allergy Reactions Criticality Noted Date Comments Mirtazapine Other - Describe In Comment Field 08/05/2009 Excessive sedation. Medications cholecalciferol (VITAMIN D) 1,000 unit capsule Take 1 capsule by mouth once daily. 0 09/06/19 11 Active CPAPIndications:OS A (obstructive sleep apnea) CPAP machine for home use at pressure 10 cmw, full face mask x1/3month with FFM cushion x1/mo 1 Each 11 09/04/19 24 Active amoxicillin (AMOXIL) 500 mg tabletIndications: Status post joint replacement 4 tablets orally 1 hour prior to procedure. 4 Tablet 3 01/01/20 24 Active buprenorphine-nalo xone (SUBOXONE) 12-[address] 1 FILM TWICE DAILY SUBLINGUALLY 12/31/19 24 Active ketoconazole 2 % creamIndications:T inea pedis, unspecified laterality Apply topically to affected area(s) once daily. To be used on the feet. 30 g 1 05/07/20 24 Active clobetasol (TEMOVATE) 0.05 % creamIndications:R nadya Apply topically to affected area(s) two times daily. Use for a few weeks then take a 1 week break. For the areas of active rash/itching on the torso. 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 168 Tablet 3 07/01/20 24 Active omeprazole (PRILOSEC) 20 mg Delayed-Release capsuleIndications :Chronic GERD Take 1 Capsule (20 mg) by mouth once daily before a meal. 90 Capsule 3 08/08/20 24 Active DULoxetine (CYMBALTA) 60 mg Delayed-release capsuleIndications :Anxiety and depression Take 1 Capsule (60 mg) by mouth once daily. 90 Capsule 3 08/08/20 24 Active atorvastatin (LIPITOR) 20 mg tabletIndications: Hyperlipidemia, unspecified hyperlipidemia type Take 1 Tablet (20 mg) by mouth at bedtime. 90 Tablet 2 10/28/19 25 Active triamcinolone 0.1 % creamIndications:R nadya APPLY CREAM EXTERNALLY TO AFFECTED AREA THREE TIMES DAILY 80 g 01/07/20 25 Active tirzepatide (weight loss) (Zepbound) 5 mg/0.5 mL penIndications:Obe sity, Class II, BMI 35-39.9 Inject 5 mg subcutaneous once weekly for 28 days. 2 mL 02/28/20 25 025 Active tirzepatide (weight loss) (Zepbound) 7.5 mg/0.5 mL penIndications:Obe sity, Class II, BMI 35-39.9 Inject 7.5 mg subcutaneous once weekly for 28 days. 2 mL 03/27/20 25 025 Active tirzepatide (weight loss) (Zepbound) 10 mg/0.5 mL penIndications:Obe sity, Class II, BMI 35-39.9 Inject 10 mg subcutaneous once weekly for 28 days. 2 mL 04/24/20 25 025 Active tirzepatide (weight loss) (Zepbound) 12.5 mg/0.5 mL penIndications:Cayetano many, Class II, BMI 35-39.9 Inject 12.5 mg subcutaneous once weekly for 28 days. 2 mL 05/22/20 25 025 Active tirzepatide (weight loss) (Zepbound) 15 mg/0.5 mL penIndications:Cayetano many, Class II, BMI 35-39.9 Inject 15 mg subcutaneous once weekly. 6 mL 3 06/19/20 25 Active Active Problems Problem Noted Date Diagnosed Date History of colon polyps 07/24/2024 Skin cancer 05/14/2024 Overview (07/28/2024): 05/07/24: Left lateral forehead, nBCC, Needs Mohs : Left parietal scalp, nBCC, Needs Mohs 05/07/24: Left inferior lateral forehead, nBCC, Needs Mohs 05/07/24: Left zygomatic cheek, nBCC, Mohs done 07/28/[address] العلي 05/07/24: Central forehead, nBCC, Mohs done 07/28/[address] العلي 05/07/24: Left cheek, nBCC, Mohs done 07/28/[address] 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 06/18/2023 Cancer Staging:Clinical:Stage III(Follicular lymphoma) - Signed by Shelia Villa MD on 06/18/2023 Obesity, Class II, BMI 35-39.9 04/19/2023 JUAN LUIS 06/28/2008 AHI-20 RDI-39 12/26/2016 Prediabetes 09/05/2016 Concentration deficit 04/03/2016 Prostate cancer 07/30/2015 Basal cell carcinoma of chest wall 05/13/2015 Subjective tinnitus 08/23/2011 Sensorineural hearing loss, bilateral 08/23/2011 Internal hemorrhoids with other complication Major depressive disorder, recurrent episode, mo derate 01/11/2007 Anxiety state, unspecified 01/11/2007 Unspecified essential hypertension 01/11/2007 Pure hypercholesterolemia 01/11/2007 Esophageal reflux 01/11/2007 Resolved Problems Problem Noted Date Diagnosed Date Resolved Date Lymphadenopathy 05/31/2023 08/08/2024 Alcohol dependence in early full remission 02/18/2016 01/15/2020 Perianal fistula 03/02/2011 04/19/2023 Anal fistula 09/29/2010 04/19/2023 Encounters Date Type Department Care Team Description 02/16/2025 11:00 AM CDT Ancillary Procedure [facility] [address] [facility] [place] [id number] 02/16/2025 Travel 01/27/2025 Telephone [facility] [address] [facility] [place] [address] Tima Sinha MD Refill Request (Zepbound 15mg/0.5ml inj) 01/12/2025 9:30 AM CDT Office Visit [facility] [address] [place] [address] Urbano Galicia MD Procedure (Port removal) 01/12/2025 Travel 01/08/2025 3:00 PM CDT Office Visit [facility] [address] [place] [phone] Shelia Villa MD Follow Up (Grade 3a follicular lymphoma of lymph nodes) 01/08/2025 2:41 PM CDT - 01/08/2025 11:59 PM CDT Hospital Encounter [facility] [address] [place] [address] Flores Barnes, SENIOR HARDWARE DESIGN ENGINEER Encounter for screening for other viral diseases (Primary Dx); 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 (HC); Other specified disorders involving the immune mechanism, not elsewhere classified (HC) 01/08/2025 Travel 01/06/2025 Orders Only [facility] [address] [place] [phone] Shelia Villa MD <No scans attached> 01/06/2025 Refill [facility] [address] [facility] [place] [address] Flores Barnes, SENIOR HARDWARE DESIGN ENGINEER Refill Request (Triamcinolone) 01/05/2025 8:24 AM CDT - 01/05/2025 11:59 PM CDT Hospital Encounter [facility] [address] [facility] [place] [address] Flores Barnes, SENIOR HARDWARE DESIGN ENGINEER 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 (HC) 01/05/2025 8:24 AM CDT - 01/05/2025 11:59 PM CDT Hospital Encounter [facility] [address] [place] [address] 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 (HC) (Primary Dx); Other specified disorders involving the immune mechanism, not elsewhere classified (HC); Encounter for screening for other viral diseases 01/05/2025 Travel 01/02/2025 Telephone [facility] [address] [place] [address] Tima Sinha MD Follow Up 01/02/2025 Hospital/[facility] Telephone Encounter [facility] [address] [place] [address] Anna Lara RN Pre Procedure (PVP) 12/30/2024 Telephone [facility] [address] [place] [address] Tima Sinha MD Medication Management 12/30/2024 Hospital/[facility] Telephone Encounter [facility] [address] [place] [address] Anna Lara RN Pre Procedure (PVP) 12/26/2024 Telephone [facility] [address] [place] [address] Tima Sinha MD Medication Management (Insurances denied refill ) 12/24/2024 Telephone [facility] [address] [place] [address] [facility] Appointment 12/20/2024 Telephone [facility] [address] [place] [address] Tima Sinha MD Prior Authorization (tirzepatide (weight loss) (Zepbound) 2.5 mg/0.5 mL pen - APPEAL APPROVED 09/30/24-12/29/25) 12/16/2024 Orders Only [facility] Scanner 1 scan: (1-Ord) MINDA, XR KNEE LT, 12/16/2024 12/15/2024 Refill [facility] [address] [place] [address] Tima Sinha MD Refill Request (Zepbound) 12/11/2024 9:00 AM CDT Telemedicine [facility] [address] [place] [address] Raheem Guzman MD Telehealth (Cpap follow up) 12/05/2024 9:15 AM CDT Office Visit [facility] [address] [place] [address] Tima Sinha MD Preoperative Exam (DOS: 12/16/2024, left knee replacement, Dr. Moyer, [facility]) 12/05/2024 Travel 12/04/2024 Telephone [facility] [address] [place] [address] Tima Sinha MD Medication Management (Prior Authro) 12/03/2024 Refill [facility] [address] [place] [address] Flores Barnes, SENIOR HARDWARE DESIGN ENGINEER Refill Request (Triamcinolone) from Last 3 Months Immunizations Immunization Administration Dates Next Due COVID-19 VACCINE SPIKEVAX (M ODERNA 50MCG/0.5ML) 12YO+ PFS 08/08/2024 Covid-19 Vaccine (Unspecified) 12/02/2020 Influenza Virus, Unspecified 05/04/2023,07/29/20 19 Influenza, High-dose Inactivated 09/05/2016 Influenza, High-dose Quadrivalent Inactivated ,06/09/2021 Influenza, IIV3 (Age >=3 years) 06/21/2013 Influenza, IIV4 08/24/2015 Influenza, Inactivated AIIV4 (Age 65+ Years) Preserv Free 06/27/2023 Influenza, Inactivated IIV3 (Age 65+ Years) Preserv Free 08/08/2024,07/29/2019 Pneumococcal Conj 20-valent (Prevnar 20) 023 Pneumococcal Poly,23-Valent (Pneumovax) 11/30/19 18 Pneumococcal conj 13-Valent (Prevnar 13) 017 Td (Age >=7 Years) 09/03/2004,07/28/1996 Tdap 07/23/2020,08/24/2015 Zoster (Shingrix-RZV, recombinant) 08/13/2021, Family History Medical History Relation Name Comments Heart Disease Father age 66 Hyperlipidemia Father Hypertension Father Cancer-colon Maternal Grandmother Hyperlipidemia Mother Hypertension Mother Anesthesia Problem Neg. Arthritis Sister Relation Name Status Comments Father Maternal Grandmother Mother Neg. Sister Social History Tobacco Use Types Packs/Day Years Used Date Smoking Tobacco: Former Cigarettes Q uit: 09/03/1974 Smokeless Tobacco: Never Tobacco Cessation:Counseling Given: No Alcohol Use Standard Drinks/Week Comments No 0 (1 standard drink = 0.6 oz pur e alcohol) PHQ-2 Answer Date Recorded PHQ-2 TOTAL SCORE 1 07/03/2023 Social Connections Answer Date Recorded Do you often feel lonely or isolated from those around you? 0 08/08/2024 Financial Resource Strain Answer Date R ecorded Difficulty of Paying Living Expenses 3 08/08/2024 Difficulty of Paying Living Expenses Not on file 08/08/2024 Food Insecurity Answer Date Recorded Do you worry your food will run out before you are able to buy more? 1 08/08/2024 Transportation Needs Answer Date Record ed Does lack of transportation keep you from medica l appointments? 1 08/08/2024 Does lack of transportation keep you from work, meetings or getting things that you need? 1 08/08/2024 Housing Stability Answer Date Recorded What is your housing situation today? 1 08/08/2024 Interpersonal Safety Answer Date Record ed Are you being hit, kicked, p ushed or yelled at (see row info)? No 09/02/2024 Interpersonal Safety Abuse 12 - 18 Not on file 09/02/2024 Interpersonal Safety Ambulatory Vulnerability No t on file 09/02/2024 Utilities Answer Date Recorded Do you have trouble paying f or utilities (for example, heat, electricity, water, phone)? 1 08/08/2024 Sex and Gender Information Value Date Recorded Sex Assigned at Male 09/02/2024 1:55 PM [employer] Legal Sex Male 6:18 AM [employer] Gender Identity Male 09/02/2024 1:55 PM [employer] Sexual Orientation Not on file Obstetrics History Last Filed Vital Signs Vital Sign Reading Time Taken Comments Blood Pressure 157/74 01/08/2025 4:00 PM CDT Pulse 60 01/08/2025 4:00 PM CDT Temperature 36.9 C (98.5 F) 01/08/2025 2:48 PM CDT Respiratory Rate 16 01/08/2025 4:00 PM CDT Oxygen Saturation 94% 01/08/2025 4:00 PM CDT Inhaled Oxygen Concentration - - Weight 129.4 kg (285 lb 4.8 oz) 01/08/2025 2:48 PM CDT Height 182.3 cm (5' 11.77) 12/05/2024 9:10 AM C DT Body Mass Index 38.94 12/05/2024 9:10 AM CDT Plan of Treatment Upcoming Encounters Date Type Department Care Team (Late st Contact Info) Description 03/11/2025 12:00 PM CDT Appointment [facility] [address] [place] [address] 03/11/2025 1:15 PM CDT Office Visit [facility] [address] [place] [address] Flores Barnes, SENIOR HARDWARE DESIGN ENGINEER [address] [place] [address] 03/11/2025 1:45 PM CDT Appointment [facility] [address] [place] [address] 03/13/2025 8:00 AM CDT [address] [address] Raheem Guzman MD [address] [place] [address] Health Maintenance Due Date Last Done Comments RSV vaccine for adults or (1 - Risk 60-74 years 1-dose series) 2011 Medicare Wellness for age 65+ 04/19/2024 04/19/2023 Depression screening for age 12+ 07/05/2024 07/05/2023, 07/05/2023, 07/05/2023, Additional history exists COVID-19 vaccine series (4 - Mixed Product risk season) 2025 08/08/2024, 08/01/2022, 12/02/2020 BMI (ht and wt on same day) for age 18+ 12/05/2025 12/05/2024, 08/08/2024, 04/19/2023, Additional history exists Colonoscopy through age 75 07/24/202907/24, 02/22/2017, 02/22/2017, Additional history exists Lipids for age 45-75 08/08/2029 08/08/2024, 04/19/2023, 03/28/2022, Additional history exists Tetanus booster 07/23/2030 07/23/2020, 08/04, 09/03/2004, Additional history exists Hepatitis C screening for age 18-79 Completed 02/26/2020 Tdap Completed 07/23/2020, 08/24/2015 Zoster (shingles) series for age 50+ Completed 08/13/2021, 06/09/2021 Pneumococcal series for age 50+ Completed 04/19/2023, 11/29/2017, 09/05/2016 Influenza Vaccine Completed 08/08/2024, , 05/04/2023, Additional history exists AAA screening age 65-74 Completed 01/06/20, 09/02/2024, 05/20/2024, Additional history exists Hepatitis B series for 19+ Aged Out N o longer eligible based on patient's age to complete this topic Medical Devices Implanted Type Area Filter Tank Tender Helper Head Device Identifier Shelf Expiration Date Model / Serial / Lot Power Port Isp Mri 6fr [id number] - [id number] Implanted:Qty : 1 on 06/26/2023 by Carmen Quan DO at [facility] Left: Subclavian Vein [employer] 04/02/2024 [id number] / / [id number] Procedures Procedure Name Priority Date/Time Associated Diagnosis Comments ECHO TTE COMPLETE WO CONTRAST KWADWO 02/16/2025 11:17 AM CDT 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 CT CHEST ABDOMEN PELVIS W Routine 01/05/2025 8:58 AM CDT 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 (HC) ONCOLOGY ABSOLUTE NEUTROPHIL COUNT STAT 01/05/2025 8:34 AM CDT 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 (HC) Other specified disorders involving the immune mechanism, not elsewhere classified (HC) Encounter for screening for other viral diseases COMP METABOLIC PANEL STAT 01/05/2025 8:34 AM CDT 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 (HC) Other specified disorders involving the immune mechanism, not elsewhere classified (HC) Encounter for screening for other viral diseases SCAN-RADIOLOGY REPORT 12/16/2024 12:00 AM CDT EKG 12 LEAD Routine 12/10/2024 2:35 PM CDT Screening for heart disease DE READING EKG - NO CHARGE, COMP ONLY Routine 12/10/2024 2:34 PM CDT Screening for heart disease CBC W PLT NO DIFF Routine 12/05/2024 9:5 5 AM CDT Preop examination LIPID PANEL W REFLEX MEASURED LDL Routine 08/08/2024 12:10 PM [employer] Pure hypercholesterolemia COLONOSCOPY 07/24/2024 11:09 AM FA[employer] MEMBER ANTI HCV Routine 02/26/2020 8:38 AM CDT Need for hepatitis C screening test from Last 3 Months or Most Recently Relevant to Health Maintenance Results * ECHO TTE COMPLETE WO CONTRAST (02/16/2025 11:17 AM CDT) AORTIC VALVE MEAN PG 8 mmHg EJECTION FRACTION 66 % LVEDD 5.0 cm Anatomical Region Laterality Modality Ultrasound 02/16/2025 10:5 7 AM CDT Narrative 02/16/2025 2:51 PM CDT ECHOCARDIOGRAM SARAVANAN TAN : 1950 74 years Study Date: 02/16/2025 10:57:45 AM Gender: M BP: 157/74 mmHg Height: 180.00 cm BSA: 2.45 m Weight: 130.00 kg Tech: KHRIS Referring MD: RAHEEM GUZMAN Site: [facility] Reading Location: Mobile-OP Patient Location: Outpatient. Procedure: 2D, Color Doppler and Spectral Doppler. 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 Final Impressions: 1. Normal left ventricular size, normal wall thickness, normal global systolic function, calculated EF of 66 %. 2. Right ventricular cavity size is normal, global systolic RV function is normal. 3. Normal left atrium size. 4. The aortic valve is normal and trileaflet, no stenosis and no regurgitation. 5. The mitral valve is normal, trace mitral regurgitation. 6. Tricuspid valve is normal, trace tricuspid regurgitation. 7. The inferior vena cava is dilated, respiratory size variation greater than 50%. 8. No pericardial effusion. Chamber Sizes and Function Normal left ventricular size, normal wall thickness, normal global systolic function, calculated EF of 66 %. No resting regional wall motion abnormality visualized. Left atrial size is normal. Left atrial pressure is normal. Right ventricular cavity size is normal, global systolic RV function is normal. RV wall thickness is normal. The right atrium is normal. Right atrial volume index is 28 ml/m . Right atrial area is 18 cm . The pulmonary artery is of normal size and origin. The sinus of Valsalva is normal sized. The ascending aorta is normal for age/sex/bsa. Valves, RV Pressures and Diastolic Function The aortic valve is normal in structure and trileaflet, no stenosis and no regurgitation. The mitral valve is normal in structure, trace mitral regurgitation. Normal diastolic function. The tricuspid valve is normal in structure, trace tricuspid regurgitation. The pulmonic valve is normal. No pulmonary regurgitation. Masses, Effusion, Shunts There is no pericardial effusion. The inferior vena cava is dilated, respiratory size variation greater than 50%. No left to right shunting was detected by limited color flow Doppler interrogation of the interatrial septum. MEASUREMENTS AND CALCULATIONS 2-D Measurements and LV Function: LVID (d) 5.0 cm Planimetered EF 66 % LVID (s) 3.0 cm LV FS% (2D) 40 % IVS (d) 1.1 cm LVOT diameter 2.4 cm LVPW (d) 1.1 cm HR 60 bpm Ao Sinus 3.5 cm LA Vol index 33 ml/m2 Ao Sinus ULN 4.2 cm * RA Vol index 28 ml/m2 Asc Ao 4.0 cm RA area 18 cm Asc Ao ULN 4.3 cm * RV Basal Diam 3.7 cm LA 4.2 cm * Input BSA outside of range, reported values correspond to BSA = 2.1 Diastology: Tissue Doppler e', Septum 0.06 m/s e', Lateral 0.07 m/s Aortic Valve: Vmax 1.8 m/s RADHA (V) 2.39 cm VTI 0.37 m RADHA (I) 2.52 cm LVOT V max 0.9 m/s Max PG 12 mmHg LVOT VTI 0.21 m Mean PG 8 mmHg SV 94 ml Dim Index 0.55 SV index 38 ml/m CO 5.7 l/min CI 2.3 l/min/m Tricuspid Valve and estimated PA pressures: TAPSE 2.3 cm . This study was interpreted by an [facility] accredited facility. Final Procedure Note Nellie Calabrese, [facility] - 02/16/2025 ECHOCARDIOGRAM SARAVANAN TAN : 1950 74 years Study Date: 02/16/2025 10:57:45 AM Gender: M BP: 157/74 mmHg Height: 180.00 cm BSA: 2.45 m Weight: 130.00 kg Tech: MKE Referring MD: RAHEEM GUZMAN Site: [facility] Reading Location: Mobile-OP Patient Location: Outpatient. Procedure: 2D, Color Doppler and Spectral Doppler. 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 Final Impressions: 1. Normal left ventricular size, normal wall thickness, normal globalsystolic function, calculated EF of 66 %. 2. Right ventricular cavity size is normal, global systolic RV functionis normal. 3. Normal left atrium size. 4. The aortic valve is normal and trileaflet, no stenosis and noregurgitation. 5. The mitral valve is normal, trace mitral regurgitation. 6. Tricuspid valve is normal, trace tricuspid regurgitation. 7. The inferior vena cava is dilated, respiratory size variation greaterthan 50%. 8. No pericardial effusion. Chamber Sizes and Function Normal left ventricular size, normal wall thickness, normal globalsystolic function, calculated EF of 66 %. No resting regional wall motionabnormality visualized. Left atrial size is normal. Left atrial pressureis normal. Right ventricular cavity size is normal, global systolic RVfunction is normal. RV wall thickness is normal. The right atrium isnormal. Right atrial volume index is 28 ml/m . Right atrial area is 18cm . The pulmonary artery is of normal size and origin. The sinus ofValsalva is normal sized. The ascending aorta is normal for age/sex/bsa. Valves, RV Pressures and Diastolic Function The aortic valve is normal in structure and trileaflet, no stenosis and noregurgitation. The mitral valve is normal in structure, trace mitralregurgitation. Normal diastolic function. The tricuspid valve is normal instructure, trace tricuspid regurgitation. The pulmonic valve is normal. Nopulmonary regurgitation. Masses, Effusion, Shunts There is no pericardial effusion. The inferior vena cava is dilated,respiratory size variation greater than 50%. No left to right shunting wasdetected by limited color flow Doppler interrogation of the interatrialseptum. MEASUREMENTS AND CALCULATIONS 2-D Measurements and LV Function: LVID (d) 5.0 cm Planimetered EF 66% LVID (s) 3.0 cm LV FS% (2D) 40% IVS (d) 1.1 cm LVOT diameter2.4 cm LVPW (d) 1.1 cm HR 60bpm Ao Sinus 3.5 cm LA Vol index 33ml/m2 Ao Sinus ULN 4.2 cm * RA Vol index 28ml/m2 Asc Ao 4.0 cm RA area 18cm Asc Ao ULN 4.3 cm * RV Basal Diam3.7 cm LA 4.2 cm * Input BSA outside of range, reported values correspond to BSA = 2.1 Diastology: Tissue Doppler e', Septum 0.06 m/s e', Lateral 0.07 m/s Aortic Valve: Vmax 1.8 m/s RADHA (V) 2.39 cm VTI 0.37 m RADHA (I) 2.52 cm LVOT V max 0.9 m/s Max PG 12 mmHg LVOT VTI 0.21 m Mean PG 8 mmHg SV 94 ml Dim Index 0.55 SV index 38 ml/m CO 5.7 l/min CI 2.3 l/min/m Tricuspid Valve and estimated PA pressures: TAPSE 2.3 cm . This study was interpreted by an [facility] accredited facility. Final Raheem Guzman MD ECHO ORD Final Result * CT CHEST ABDOMEN PELVIS W (01/05/2025 8:58 AM CDT) Anatomical Region Laterality Modality Abdomen, Pelvis, AORTA, LIVER, SPLEEN, CHEST Computed Tomography 01/05/2025 9:23 AM CDT Impressions 01/05/2025 9:23 AM CDT 1. No lymphadenopathy, evidence of metastatic disease or significant change from the prior study. Mild residual graying of the fat at the root of the mesentery. 2. New small diaphragmatic hernia posterior right lung base. 3. Fatty liver, mild diverticulosis, left nephrolithiasis and right renal cyst unchanged. 4. History of radical prostatectomy. Please note that all CT scans at this facility use dose modulation, iterative reconstruction, and/or weight-based dosing when appropriate to reduce radiation dose to as low as reasonably achievable. Dictated by Hannah Astorga MD @ 01/05/2025 9:23:21 AM (Electronically Signed) Narrative 01/05/2025 9:23 AM CDT For Patients: As a result of the Century Cures Act, medical imaging exams and procedure reports are released immediately into your electronic medical record. You may view this report before your referring provider. If you have questions, please contact your health care provider. INDICATION: Follicular lymphoma TECHNIQUE: CT chest, abdomen and pelvis acquired with IV contrast. COMPARISON: CT abdomen pelvis without contrast 09/02/[address] chest abdomen pelvis with contrast 05/20/2024 FINDINGS: Chest: Cardiovascular structures: Heart size is normal. Thoracic aorta and main pulmonary artery are normal in caliber. Mediastinum and flor: No mass or adenopathy. Calcified granuloma posterior mediastinum. Thyroid normal. Lungs: Minimal scarring posterior right upper lobe unchanged. New calcified granuloma, fat in a posterior diaphragmatic hernia minimal atelectasis posterior sulcus of the right lower lobe. No suspicious pulmonary lesions. Pleura and pericardium: No effusions. Chest wall and axilla: No mass or adenopathy. Left chest power port with its tip in good position, proximal SVC. Bones: Degenerative an ankylosed spine. No lytic or osteoblastic lesions. Abdomen and Pelvis: Liver: Fatty liver. No lesions. Spleen: Normal size. No lesions. Pancreas: Unremarkable. Gallbladder and bile ducts: Unremarkable. Kidneys: Prominent right renal cyst and single nonobstructing left renal calculi unchanged Adrenal glands: Unremarkable. GI tract: Mild diverticulosis. No inflammation or obstructive pattern. Vascular structures: Unremarkable. Lymph nodes: No mesenteric, retroperitoneal, pelvic or inguinal lymphadenopathy. Residual graying within the fat at the root of the mesentery. Miscellaneous: Unremarkable. No free air or significant free fluid. Pelvic Organs: Unremarkable. History of radical prostatectomy. Bones: Unremarkable for age. Procedure Note Nico Astorga MD - 01/05/2025 For Patients: As a result of the 21st Century Cures Act, medical imagingexams and procedure reports are released immediately into your electronicmedical record. You may view this report before your referring provider.If you have questions, please contact your health care provider. INDICATION: Follicular lymphoma TECHNIQUE: CT chest, abdomen and pelvis acquired with IV contrast. COMPARISON: CT abdomen pelvis without contrast 09/02/[address] chest abdomen pelviswith contrast 05/20/2024 FINDINGS: Chest: Cardiovascular structures: Heart size is normal. Thoracic aorta and mainpulmonary artery are normal in caliber. Mediastinum and flor: No mass or adenopathy. Calcified granuloma posteriormediastinum. Thyroid normal. Lungs: Minimal scarring posterior right upper lobe unchanged. Newcalcified granuloma, fat in a posterior diaphragmatic hernia minimalatelectasis posterior sulcus of the right lower lobe. No suspiciouspulmonary lesions. Pleura and pericardium: No effusions. Chest wall and axilla: No mass or adenopathy. Left chest power port withits tip in good position, proximal SVC. Bones: Degenerative an ankylosed spine. No lytic or osteoblastic lesions. Abdomen and Pelvis: Liver: Fatty liver. No lesions. Spleen: Normal size. No lesions. Pancreas: Unremarkable. Gallbladder and bile ducts: Unremarkable. Kidneys: Prominent right renal cyst and single nonobstructing left renalcalculi unchanged Adrenal glands: Unremarkable. GI tract: Mild diverticulosis. No inflammation or obstructive pattern. Vascular structures: Unremarkable. Lymph nodes: No mesenteric, retroperitoneal, pelvic or inguinallymphadenopathy. Residual graying within the fat at the root of themesentery. Miscellaneous: Unremarkable. No free air or significant free fluid. Pelvic Organs: Unremarkable. History of radical prostatectomy. Bones: Unremarkable for age. IMPRESSION: 1. No lymphadenopathy, evidence of metastatic disease or significantchange from the prior study. Mild residual graying of the fat at the rootof the mesentery. 2. New small diaphragmatic hernia posterior right lung base. 3. Fatty liver, mild diverticulosis, left nephrolithiasis and right renalcyst unchanged. 4. History of radical prostatectomy. Please note that all CT scans at this facility use dose modulation,iterative reconstruction, and/or weight-based dosing when appropriate toreduce radiation dose to as low as reasonably achievable. Dictated by Hannah Astorga MD @ 01/05/2025 9:23:21 AM (Electronically Signed) Flores Barnes NP CT Final Result * (ABNORMAL) ONCOLOGY ABSOLUTE NEUTROPHIL COUNT (01/05/2025 8:34 AM CDT) WHITE BLOOD COUNT 5.3 4.5 - 11.0 thou/cu mm 01/05/2025 8:45 AM CDT [facility] RED BLOOD COUNT 4.14(L) 4.30 - 5.90 mil/cu mm 01/05/2025 8:45 AM T [facility] HEMOGLOBIN 11.4(L) 13.5 - 17.5 g/dL 01/05/2025 8:[address] [facility] HEMATOCRIT 36.3(L) 37.0 - 53.0 % 01/05/2025 8:[address] [facility] MCV 88 80 - 100 fL 01/05/2025 8:[address] [facility] MCH 27.5 26.0 - 34.0 pg 01/05/2025 8:[address] [facility] MCHC 31.4(L) 32.0 - 36.0 g/dL 01/05/2025 8:[address] [facility] RDW 15.2 11.5 - 15.5 % 01/05/2025 8:[address] [facility] PLATELET COUNT 238 140 - 440 thou/cu mm 01/05/2025 8:[address] [facility] MPV 10.1 6.5 - 11.0 fL 01/05/2025 8:[address] [facility] % NEUT 57.7 % 01/05/2025 8:[address] [facility] % LYMPH 21.6 % 01/05/2025 8:[address] [facility] % MONO 16.3 % 01/05/2025 8:[address] [facility] % EOS 4.0 % 01/05/2025 8:[address] [facility] % BASO 0.4 % 01/05/2025 8:[address] [facility] ONCOLOGY ABSOLUTE NEUTROPHILS 3.1 1.7 - 7.0 thou/cu mm 01/05/2025 8:[address] [facility] ABSOLUTE LYMPHOCYTES 1.1 0.9 - 2.9 thou/cu mm 01/05/2025 8:[address] [facility] ABSOLUTE MONOCYTES 0.9(H) <0.9 thou/cu mm 01/05/2025 8:[address] [facility] ABSOLUTE EOSINOPHILS 0.2 <0.5 thou/cu mm 01/05/2025 8:[address] [facility] ABSOLUTE BASOPHILS 0.0 <0.3 thou/cu mm 01/05/2025 8:[address] [facility] NRBC 01/05/2025 8:[address] [facility] ABS NRBC 01/05/2025 8:[address] [facility] Blood BLOOD SPECIMEN / Unknown Line/Port / Unknown 01/05/2025 8:34 AM CDT 01/05/2025 8:42 AM CDT [facility] - 01/05/2025 8:45 AM CDT Includes CBC and differential. Drawn from port; treatment pending. us Shelia Villa MD HEMATOLOGY Final Resu lt [facility] [address] [place] [address] * (ABNORMAL) COMP METABOLIC PANEL (01/05/2025 8:34 AM CDT) SODIUM 141 136 - 145 mmol/L 01/05/2025 9:[address] [facility] POTASSIUM 4.1 3.5 - 5.1 mmol/L 01/05/2025 9:[address] [facility] CHLORIDE 105 98 - 107 mmol/L 01/05/2025 9:[address] [facility] CO2,TOTAL 28 22 - 29 mmol/L 01/05/2025 9:[address] [facility] ANION GAP 8 5 - 18 01/05/2025 9:[address] [facility] GLUCOSE 114(H) 70 - 99 mg/dL 01/05/2025 9:[address] [facility] CALCIUM 9.2 8.8 - 10.4 mg/dL 01/05/2025 9:[address] [facility] Comment: Reference ranges for this test were updated on 07/08/2024 to reflect our healthy population more accurately. Reference range changes are not retroactively applied to results, but previous results using the same methodology can be interpreted in the context of the new reference range. BUN 15 8 - 23 mg/dL 01/05/2025 9:[address] [facility] CREATININE 0.84 0.70 - 1.20 mg/dL 01/05/2025 9:[address] [facility] BUN/CREAT RATIO 18 10 - 20 9:[address] [facility] eGFR >90 >90 mL/min/1. 73m2 01/05/2025 9:[address] [facility] Comment:As of 2021, eG FR is calculated by the CKD-EPI creatinine equation without race adjustment. eGFR can be influenced by muscle mass, exercise, and diet. The reported eGFR is an estimation only and is only applicable if the renal function is stable. ALBUMIN 3.9(L) 4.0 - 4.9 g/dL 01/05/2025 9:[address] [facility] PROTEIN,TOTAL 6.5 6.0 - 8.0 g/dL 01/05/2025 9:[address] [facility] BILIRUBIN,TOTAL 0.5 0.0 - 1.2 mg/dL 01/05/2025 9:[address] [facility] ALK PHOSPHATASE 91 40 - 129 IU/L 01/05/2025 9:[address] [facility] ALT (SGPT) 16 10 - 50 IU/L 01/05/2025 9:[address] [facility] AST (SGOT) 18 10 - 50 IU/L 01/05/2025 9:[address] [facility] Blood BLOOD SPECIMEN / Unknown Line/Port / Unknown 01/05/2025 8:34 AM CDT 01/05/2025 8:42 AM CDT us Shelia Villa MD CHEMISTRY Final Resu lt [facility] [address] [place] [address] * SCAN-RADIOLOGY REPORT (12/16/2024 12:00 AM CDT) Anatomical Region Laterality Modality Other us Scanner OTHER Final Result * EKG 12 LEAD (12/10/2024 2:35 PM CDT) us Tima Sinha MD EKG ORD Final Result * DE READING EKG - NO CHARGE, COMP ONLY (12/10/2024 2:34 PM CDT) us Tima Sinha MD PB - PROVIDER READINGS Final Result * (ABNORMAL) CBC W PLT NO DIFF (12/05/2024 9:55 AM CDT) WHITE BLOOD CELL COUNT 4.6 3.8 - 10.8 Thousand/u L [facility] RED BLOOD CELL COUNT 4.92 4.20 - 5.80 Million/uL [facility] HEMOGLOBIN 13.8 13.2 - 17.1 g/dL [facility] HEMATOCRIT 43.2 38.5 - 50.0 % [facility] MCV 87.8 80.0 - 100.0 fL [facility] MCH 28.0 27.0 - 33.0 pg [facility] MCHC 31.9(L) 32.0 - 36.0 g/dL [facility] Comment: For adults, a slight decrease in the calculated MCHC value (in the range of 30 to 32 g/dL) is most likely not clinically significant; however, it should be interpreted with caution in correlation with other red cell parameters and the patient's clinical condition. RDW 14.7 11.0 - 15.0 % [facility] PLATELET COUNT 170 140 - 400 Thousand/u L [facility] MPV 11.6 7.5 - 12.5 fL [facility] Blood BLOOD SPECIMEN / Unknown 12/05/2024 9:55 AM CDT 12/05/2024 9:55 AM CDT us Tima Sinha MD HEMATOLOGY Final Result [facility] [address] [address], [place] [phone] [facility] [address] [place] [address] * (ABNORMAL) LIPID PANEL W REFLEX MEASURED LDL (08/08/2024 12:10 PM [employer]W MEMBER) CHOLESTEROL, TOTAL 172 <200 mg/dL [facility] HDL CHOLESTEROL 45 > OR = 40 mg/dL [facility] TRIGLYCERIDES 119 <150 mg/dL [facility] LDL-CHOLESTEROL 105(H) mg/dL (calc) [facility] Comment: Reference range: <100 Desirable range <100 mg/dL for primary prevention; <70 mg/dL for patients with CHD or diabetic patients with > or = 2 CHD risk factors. LDL-C is now calculated using the Adi calculation, which is a validated novel method providing better accuracy than the Friedewald equation in the estimation of LDL-C. Korey BOWLING et al. CHRISTAL. 2013;310(19): 4134-9720 (http://education.WebKite/faq/ZJA479) CHOL/HDLC RATIO 3.8 <5.0 (calc) [facility] NON HDL CHOLESTEROL 127 <130 mg/dL (calc) [facility] Comment: For patients with diabetes plus 1 major ASCVD risk factor, treating to a non-HDL-C goal of <100 mg/dL (LDL-C of <70 mg/dL) is considered a therapeutic option. Blood BLOOD SPECIMEN / Unknown 08/08/2024 12:10 PM [employer] MEMBER 08/08/2024 12:10 PM FA[employer]W MEMBER Tima Sinha MD CHEMISTRY Final Result [facility] [address] [address], [place] [phone] [facility] [address] [place] [address] * COLONOSCOPY (07/24/2024 11:09 AM FA[employer] CREW MEMBER) 07/24/2024 11:0 9 AM [employer]BER Narrative Transcriptions Urbano Galicia MD - 07/24/2024 1:00 PM CST Patient Name: Saravanan Tan Procedure Date: 07/24/2024 Gender: Male Date of : 1950 Admit Type: Ambulatory Procedure: Colonoscopy Proceduralist: Urbano Galicia MD [facility] Indications/Pre-Op Diagnosis: High risk colon cancer surveillance:Personal history of colonic polyps Medications: Propofol per Anesthesia Procedure Description: The patient had risks, benefits and alternatives explained to andgave informed consent. The patient had a stable cardiopulmonary status and judged an adequate candidate for conscious sedation. The endoscope [id number] was passed through the anus and advanced to the cecum, identified by the appendiceal orifice. The colonoscopy was technically difficult and complex due to a redundant colon. Successful completion of the procedure was aided by applying abdominal pressure. The patient tolerated the procedure well. The quality of the bowel preparation was adequate to identify polypsgreater than 5 mm in size. The ileocecal valve, appendiceal orifice, andrectum were photographed. Complications: No immediate complications. Estimated Blood Loss & Specimen: Estimated blood loss: none. Findings: The perianal and digital rectal examinations were normal. Multiple medium-mouthed and small-mouthed diverticula were found inthe sigmoid colon. The exam was otherwise without abnormality. Impressions/Post-Op Diagnosis: - Diverticulosis in the sigmoid colon. - The examination was otherwise normal. - No specimens collected. Recommendation: - Discharge patient to home. - High fiber diet. - Continue present medications. - Repeat colonoscopy is not recommended due to current age (66 yearsor older) for screening purposes. Urbano Galicia MD 07/24/2024 1:00:18 PM Note Initiated On: 07/24/2024 11:09 AM Urbano Galicia MD PROCEDURE ORD Final Resu lt * ANTI HCV (02/26/2020 8:38 AM CDT) HEPATITIS C ANTIBODY Non-React reginald Non-React reginald 02/26/2020 3:32 PM CDT [facility] Comment:Antibodies to HCV no t detected; does not exclude the possibility of exposure to HCV. Blood BLOOD SPECIMEN / Unknown Venipuncture / Unknown 02/26/2020 8:38 AM CDT 02/26/2020 8:42 AM CDT us Tima Sinha MD SEND OUTS Final Result [facility] [address] [place] [address], [place] from Last 3 Months or Most Recently Relevant to Health Maintenance Insurance MEDICARE PB ONLY MEDICARE PART B HB ONLY MEDICARE PART A HB ONLY [facility] FED EMP [facility] FED EMP STATE FARM Advance Directives * Full Code (Latest Code Status on File) Date Activated Date Inactivated Comments 07/24/2024 10:56 AM 07/24/2024 3:54 PM Question Answer Comments Code Status Discussion: Discussed * Full Code Date Activated Date Inactivated Comments 05/14/2024 6:45 AM 05/15/2024 2:29 AM Question Answer Comments Code Status Discussion: Discussed * Full Code Date Activated Date Inactivated Comments 06/26/2023 7:58 AM 06/26/2023 1:28 PM Question Answer Comments Code Status Discussion: Reviewed Preferences * Full Code Date Activated Date Inactivated Comments 05/31/2023 6:44 AM 05/31/2023 12:52 PM Question Answer Comments Code Status Discussion: Unable to Assess Preferences, Provider to review later * Full Code Date Activated Date Inactivated Comments 12/06/2016 8:38 AM 12/06/2016 4:27 PM Care Teams Manager Center Relationship Specialty Start Date End Date Tima Sinha MD [address] [place] [address] PCP - General 08/21/06 Ashly Ge, RN [address] [place] [address] Nurse Navigator - Oncology Registered Nurse 05/22/23 Mayo Beaulieu LGSW [address] [place] [address] Information Technology Technician Hematology and Oncology 06/18/23 Flores Barnes, SENIOR HARDWARE DESIGN ENGINEER [address] [place] [address] Nurse Practitioner Hematology and Oncology 06/18/23 Shelia Villa MD [address] [place] [address] [place] [id number] Medical Oncologist Hematology and Oncology 06/18/23
== END 2025-02-23 20:11 | disposition home or self-care (01) ==
LOC: SLEEP 20:10
PROVIDERS: PCP Family Medicine; Visit Provider Internal Medicine
DX: G47.33 Obstructive sleep apnea (adult) (pediatric) (principal); R09.02 Hypoxemia; G47.31 Primary central sleep apnea
CPT/HCPCS: 95811

== ENCOUNTER 2025-08-06 07:03 | Day surgery (SDC) | payer MEDICARE, BC, SELFPAY ==
[2025-08-06] VITALS (11 sets, daily range): BP systolic 109–141; BP diastolic 61–94; PULSE 56–71; RESP 16; TEMP 36.2–36.8; O2SAT 93–96; BMI 33.2
--- NOTE | 2025-08-06 07:39 | W.PM.H&PU ---
History & Physical Update History & Physical Update H&P Reviewed and patient assessed: No changes noted
[2025-08-06] MEDS: SODIUM CHLORIDE 0.9 % (FLUSH) 10 ML SYRINGE IVF (07:45)
[2025-08-06] MEDS: LACTATED RINGERS 1000 ML 1,000 ML 100 ML IV (07:45)
--- NOTE | 2025-08-06 08:18 | SUR.PREOP ---
TIME?OUT:?0815 PT/RN/MDA?VERIFICATION?OF?SURGICAL?SITE,?PROCEDURE,?AND?CONSENT OBTAINED?PRIOR?TO?INVASIVE?PROCEDURE.
[2025-08-06] MEDS: MIDAZOLAM HCL 1 MG/ML inj IVP (08:19)
[2025-08-06] MEDS: EPINEPHrine 1 MG in SODIUM CHLORIDE IRRIG SOLUTION 3,000 ML 9003 MG IRRIGATION ×7 (09:50→11:05)
--- NOTE | 2025-08-06 11:41 | P.ANES_ITS ---
Anesthesia Charges Start Date/Time Anesthesia Start Date: 08/06/25 Anesthesia Start Time: 08:54 Stop Date/Time Anesthesia Stop Date: 08/06/25 Anesthesia Stop Time: 11:43 Summary Extremes of Age - Over 70 or under 1: GOLDSMITH APPRENTICE Coding CPT Codes CPT Codes: ANESTH SURGERY OF SHOULDER - 71437 ([id number]) P2 - PATIENT W/MILD SYST DISEASE, QK - IMMIGRATION LAW SPECIALIST 2-4 CNCRNT ANES PROC, QX - GOLDSMITH APPRENTICE SVC W/ MD MED DIRECTION Additional Codes: Summary - Extremes of Age - Over 70 or under 1: GOLDSMITH APPRENTICE ([id number])
--- NOTE | 2025-08-06 11:41 | W.ANESCHARGE ---
Anesthesia Charges Start Date/Time Anesthesia Start Date: 08/06/25 Anesthesia Start Time: 08:54 Stop Date/Time Anesthesia Stop Date: 08/06/25 Anesthesia Stop Time: 11:43 Summary Extremes of Age - Over 70 or under 1: VETERINARY MANAGER Coding CPT Codes CPT Codes: ANESTH SURGERY OF SHOULDER - 95086 ([id number]) P2 - PATIENT W/MILD SYST DISEASE, QK - ARCHITECTURAL INTERN 2-4 CNCRNT ANES PROC, QX - VETERINARY MANAGER SVC W/ MD MED DIRECTION Additional Codes: Summary - Extremes of Age - Over 70 or under 1: VETERINARY MANAGER ([id number])
--- NOTE | 2025-08-06 12:49 | P.NB_ITS ---
Nerve Block Nerve Block Time Seen by Provider: 08:15 Date Seen: 08/06/25 Type of block requested by surgeon for post-operative analgesia: supraclavicular Side: left Time out performed: Yes Verification of patient name: Yes Verification of date of : Yes Site marking: site marked Name of person performing procedure: Jame Continuous monitoring Was continuous monitoring of O2 sat, B/P, classroom monitor, recorded every 15 minutes?: Yes Procedure Checklist: sterile prep, needles and gloves Ultrasound guided. Images saved: Yes Medications given in 5ml increments after negative aspiration: Ropivicaine %: 0.5 mL: 20 Needle gauge: 22 Precedex (mcg): 25 Patient tolerated procedure well: Yes Block Charges Block Charge (with Pro Fee): Brachial Plexus Use of Ultrasound Machine for Block: Yes- US Guidance/pain block
--- NOTE | 2025-08-06 12:49 | P.ANES_ITS ---
Anesthesia Charges Start Date/Time Anesthesia Start Date: 08/06/25 Anesthesia Start Time: 08:54 Stop Date/Time Anesthesia Stop Date: 08/06/25 Anesthesia Stop Time: 11:43 Summary Extremes of Age - Over 70 or under 1: MDA Coding CPT Codes CPT Codes: ANESTH SURGERY OF SHOULDER - 14386 ([id number]) QK - HEALTH INSURANCE SPECIALIST 2-4 CNCRNT ANES PROC, QX - AUTOMOTIVE SALES REPRESENTATIVE SVC W/ MD MED DIRECTION, P2 - PATIENT W/MILD SYST DISEASE Additional Codes: Summary - Extremes of Age - Over 70 or under 1: MDA ([id number])
--- NOTE | 2025-08-06 14:36 | PM.ORPRC ---
Procedure Note Date of procedure: 08/06/25 Procedure: PREOPERATIVE DIAGNOSES: 1. Left shoulder rotator cuff tear - full-thickness supraspinatus and infraspinatus. Also upper border subscapularis 2. Left shoulder subacromial impingement syndrome. 3. Left shoulder AC degenerative joint disease 4. Left shoulder labral tearing. 5. Left shoulder long of the biceps dislocation of the bicipital groove POSTOPERATIVE DIAGNOSES: 1. Left shoulder rotator cuff tear - full-thickness supraspinatus and infraspinatus. Also upper border subscapularis 2. Left shoulder labral tearing. 3. Left shoulder long of the biceps dislocation of the bicipital groove NAME OF OPERATION: 1. Left shoulder arthroscopic rotator cuff repair - full-thickness supraspinatus and anterior infraspinatus, also upper border subscapularis; modifier 22. 25% added difficulty for this case due to patient's tear complex [place]. It was torn from the supraspinatus footprint with a cuff of tissue remaining on the greater tuberosity. The tissue had retracted medially as well as posteriorly. It also had delamination of multiple layers. This was in addition to an upper border subscapularis tear. 2. Left shoulder arthroscopic long head of biceps tenodesis 3. Left shoulder arthroscopic limited glenohumeral debridement. SURGEON: Ortega Perez MD INSTRUMENT MAKER APPRENTICE: Robyn Burk PA-C and Nithin COREA. Of note, a skilled early childhood assistant was critical for this case to aide in patient positioning, suture manipulation, arm positioning, instrument positioning, and closure. ANESTHESIA: General plus preoperative supraclavicular block. EBL: 25 mL IMPLANTS: Arthrex 4.75 mm BioComposite SwiveLock suture anchor (x2); Arthrex 5.5 mm BioComposite corkscrew suture anchor (x1); Arthrex 5.5 mm BioComposite SwiveLock suture anchor (x2); Arthrex 2.6 mm knotless biceps tenodesis FiberTak (x1) COMPLICATIONS: None evident INDICATIONS: The patient is a pleasant, 74-year-old male who has experienced left shoulder pain that has been increasing in recent time. Physical exam and imaging were consistent with a rotator cuff tear. Given their findings, as well as the weakness and pain, and inadequate response to nonoperative management, recommendation was made for surgery. FINDINGS: Exam under anesthesia revealed stable shoulder with excellent range of motion. 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 The Subscapularis tendon was torn from its upper border with mild-moderate retraction. The long head of the biceps tendon was subluxed out of the bicipital groove and showed significant partial-thickness tearing of the intra-articular portion. The superior rotator cuff tendon was found to be torn full-thickness through the entire supraspinatus with retraction posteromedially. The anterior infraspinatus was also torn and partially retracted. There was delamination of the supraspinatus tear as well and a need for marginal convergence sutures. The labrum was torn in the anterior and superior aspects primarily and to a lesser degree posterior aspect. No loose bodies were identified within the pouch or subscapularis recess. PROCEDURE: Following a thorough discussion of risks, benefits, and alternatives, consent was obtained and the left shoulder was marked. The patient was brought to the operating room and placed supine on the operating table. Induction of anesthesia was completed after preoperative supraclavicular block was administered in preop holding. Appropriate time out was performed identifying proper patient, site, and procedure. 2 g IV Ancef was administered within 1 hour of incision preoperatively. The left upper extremity was prepped and draped in the appropriate sterile fashion using ChloraPrep prep. This was after the patient was positioned in the beach chair with their head in neutral alignment and all bony prominences well padded. The shoulder was insufflated with 20mL of normal saline via an 18g spinal needle from a posterior approach. An 11 blade skin incision allowed a blunt trochar to be inserted and diagnostic arthroscopy to be performed with the findings as noted above. An anterior portal was established with an outside in technique. This allowed the probe to be inserted and confirm the diagnostic arthroscopic findings. The shaver was then inserted and allowed debridement of the anterior and superior as well as posterior labrum, also the biceps stump after tenodesis completed, and finally for the some loose chondral tissue on the humeral head anteromedially. The long head of biceps was found to be subluxed out of bicipital groove. Along with its partial-thickness tearing in the intra-articular portion, a biceps tenodesis was completed. By prepping the bicipital groove with an arthroscopic rasp and bur on reverse, the Arthrex knotless FiberTak biceps anchor was placed, the sutures passed around, and or through the tendon consistent with the technique guide. Following this, the upper border subscapularis was repaired after debriding the lesser tuberosity with the shaver and Ashley cautery. Subscapularis was captured in horizontal mattress fashion with a fiber tape suture. The tails were brought to a single anchor in the lesser tuberosity with excellent reapproximation of the subscap tendon and good excursion/tension. Thereafter, the subacromial space was entered. Here, a complete bursectomy was performed. A subacromial decompression and distal clavicle excision were otherwise planned, but given the complex tear pattern and concern for possible re-tear with risk for anterosuperior escape in the future, decision was made not to release the CA ligament and therefore no decompression was completed. Further inspection of the supraspinatus and infraspinatus rotator cuff was performed. This identified the tear as noted above. The margins of the tear were debrided, and the greater tuberosity was debrided with a combination of the apollo cautery, shaver, and bur on reverse setting. After gentle decortication, 2 marginal convergence sutures were passed through the split that was better identified after providing some tag stitches that allowed us to pull traction on rotator cuff retracted tissue. An anteromedial anchor was 1st placed (5.5 mm BioComposite corkscrew) that was double loaded. The 4 tails were passed independently and eventually tied bringing that cuff of tissue more anteriorly as well as laterally. Prior to the sutures being tied for this stage, a posterior medial anchor with preloaded FiberTapes was placed just lateral to the articular edge and the sutures were retrieved with a SutureLasso. The anterior anchor tails were 1st tied relieving tension. Thereafter, 1 tail from each of those tied sutures as well as 1 of the FiberTapes from the posterior medial anchor were Crisscrossed into 2 separate lateral row anchors. The rotator cuff showed excellent reapproximation of the greater tuberosity with good security upon probing. Prior to anchor delivery driver removal, the eyelet sutures were tugged on for each anchor and found that the anchor had excellent stability within the bone. The shoulder was placed through range of motion and found to be stable. The rotator cuff was re-probed and found to be stable. Instruments were removed. Excess fluid was drained, closure performed with 4-0 Monocryl and Steri-Strips. Dressings were applied. Sling was applied. The patient was awoken from anesthesia and transferred to the PACU in stable condition. A skilled early childhood assistant was critical for this case to aid in patient positioning, limb positioning, skill to manipulate arthroscopic instruments and camera, suture management, patient safety, and closure. Again, given the complex rotator cuff tear pattern and 3 out of 4 tendons involved, this repair was much more difficult and required 25+% more time and increased number of assitants to complete the procedure safely and appropriately. PLAN: 1. Elbow, forearm, wrist and digit range of motion of operative extremity as tolerated. 2. Encouraged ice. 3. Oxycodone for pain as needed. 4. Sling at all times except for ROM and showering. 5. Follow up with PA visit in 1-2 weeks for wound check. Initiate physical therapy following that visit for passive range of motion. Initiate active assisted range of motion at 6 weeks. May do pendulums now.
== END 2025-08-06 13:38 | disposition home or self-care (01) ==
LOC: OR 07:04
PROVIDERS: PCP Family Medicine; Visit Provider Orthopaedic Surgery Sports Medicine
PROC: (CPT 29805; principal; 2025-08-06 08:45)
DX: M75.122 Complete rotator cuff tear or rupture of left shoulder, not specified as traumatic (principal); M75.42 Impingement syndrome of left shoulder; M19.012 Primary osteoarthritis, left shoulder; S43.432A Superior glenoid labrum lesion of left shoulder, initial encounter; M75.22 Bicipital tendinitis, left shoulder; G89.18 Other acute postprocedural pain
CPT/HCPCS: 29827; 29828; 29822; 01630; 64415; 76942; 99100; C1713; J0169; J0330; J0690; J1100; J2250; J2405; J2704; J2710; J2795; J3010; J7120; L3670